=== PATIENT | female | born 1970 | race Caucasian/White ===

== ENCOUNTER 2020-12-04 15:24 | Emergency (ER) | payer OTHER, SELFPAY ==
[2020-12-04 15:39] VITALS: BP 123/74; PULSE 67; RESP 20; TEMP 37.3; O2SAT 99
[2020-12-04 15:44] VITALS: BP 123/74; PULSE 67; RESP 20; TEMP 37.3; O2SAT 99
--- NOTE | 2020-12-04 16:01 | ED.GENADULT ---
HPI - General Adult General Chief complaint: Upper Respiratory Infection Stated complaint: cough,runny nose,adolfo Time Seen by Provider: 12/04/20 16:01 Source: patient Mode of arrival: ambulatory Limitations: no limitations History of Present Illness HPI narrative: 49-year-old female patient presents to the [facility] with complaints of cold symptoms for the past week and a half as well as urinary tract infection symptoms. Patient states she has had congestion, runny nose and sneezing along with a mild nonproductive cough. Patient states she has been taking TheraFlu some [id number] cold medications. Patient also complains of pain with urination and pressure for the last 3 to 4 days. Denies fevers, body aches or chills. Denies any low back pain. Related Data Home Medications Medication Instructions Recorded Confirmed aripiprazole 5 mg tablet 5 mg PO DAILY 04/23/19 armodafinil 50 mg tablet 150 mg PO QAM 04/23/19 dextroamphetamine-amphetamine ER 20 mg PO DAILY 04/23/19 20 mg 24hr capsule,extend release sertraline 50 mg tablet 50 mg PO DAILY 04/23/19 trazodone 50 mg tablet 50 mg PO BID PRN 04/23/19 Allergies Allergy/AdvReac Type Severity Reaction Status Date / Time morphine Allergy Unknown Vomiting Verified 02/18/18 08:28 Review of Systems Review of Systems: Narrative: CONSTITUTIONAL: Denies fever, chills, or sweats. EYES: Denies visual changes, redness, or discharge. ENT: Positive rhinorrhea, congestion, sore throat, denies otalgia. CARDIOVASCULAR: Denies chest pain, palpitations, or edema. RESPIRATORY: Denies cough or dyspnea. GASTROINTESTINAL: Denies abdominal pain, nausea, vomiting, or diarrhea. GENITOURINARY: Positive dysuria, denies hematuria. SKIN: Denies rash or itching. MUSCULOSKELETAL: Denies back pain, joint pain, or myalgia. NEUROLOGIC: Denies headache, numbness, or weakness. PSYCHIATRIC: Denies anxiety or depression. [facility]LY [facility] Past Medical History Medical History (Updated 12/04/20 @ 16:20 by LUISA Cerna) Allergies Anxiety Cervical disc disorder Depression History of frequent headaches Thyroid disease Surgical History Surgical History Delivery by section H/O: hysterectomy Family History Family History Grandparent Diabetes mellitus Acute myocardial infarction Father Family history of malignant neoplasm Mother Carcinoma of colon Social History Social History Smoking packs per day: 0.5 Smoking cigarettes per day: 10.0 Years smoked: 20 Smoking pack-years: 10.00 Smoking status: Current every day smoker Tobacco type: cigarettes Alcohol intake: current Drinks per week: 1 Substance use: never Comments At the time of my signature I agree with nursing past medical history, surgical, social, and family history. There is no relevant family history pertinent to the presenting complaint. Exam Narrative: Exam Narrative: GENERAL: Well-appearing, well-nourished, and in no acute distress. HEAD: Normocephalic, atraumatic. EYES: PERRLA and EOMI. ENT: Nares with erythema and edema noted bilaterally r, no rhinorrhea or epistaxis. Mucous membranes moist. Posterior pharynx with no erythema, tonsillar Lizeth, exudates or lesions present. Bilateral TMs are clear with no erythema or foreign bodies in the canal. NECK: Supple. No lymphadenopathy CHEST: Clear to auscultation. No respiratory distress. HEART: Regular rate and rhythm. No murmur heard. Normal peripheral pulses. ABDOMEN: Soft, nontender, nondistended, normal active bowel sounds. No CVA tenderness on percussion EXTREMITIES: Normal range of motion. No edema. SKIN: Warm, dry, no rash. NEURO: No focal deficits. Alert and oriented x3. Course Vital Signs Vital signs: Vital Signs Temperature 37.3 C 12/04/20 15:39 Pulse Rate 67 06
== END 2020-12-04 16:27 | disposition home or self-care (01) ==
PROVIDERS: Emergency Provider Nurse Practitioner Family; PCP Family Medicine
DX: N30.00 Acute cystitis without hematuria (principal); J30.89 Other allergic rhinitis; F17.210 Nicotine dependence, cigarettes, uncomplicated; F41.9 Anxiety disorder, unspecified; F32.9 Major depressive disorder, single episode, unspecified
CPT/HCPCS: 81003; 87077; 87081; 87086; 87088; 87186; 87880; 99213; G0463

== ENCOUNTER 2021-05-08 17:37 | Emergency (ER) | payer OTHER, SELFPAY ==
--- NOTE | 2021-05-08 17:40 | ED.URI ---
HPI - URI/Sore Throat General Chief Complaint: Upper Respiratory Infection Stated Complaint: congestion and ear pain Time Seen by Provider: 05/08/21 18:07 Source: patient and RN notes reviewed Mode of arrival: ambulatory Limitations: no limitations History of Present Illness HPI Narrative: 50-year-old female presents concern for 1/2-week history of sinus congestion, pressure, pain, ear pressure and pain, sinus drainage, postnasal drainage. She denies sore throat, cough, shortness of breath, rash, chills, sweats. Reports low-grade fever. She denies known sick contacts. She has been vaccinated for Covid. MD elicited complaint: nasal congestion Related Data Home Medications Medication Instructions Recorded Confirmed dextroamphetamine-amphetamine ER 20 mg PO DAILY 04/23/19 05/08/21 20 mg 24hr capsule,extend release sertraline 50 mg PO DAILY 05/08/21 05/08/21 Allergies Allergy/AdvReac Type Severity Reaction Status Date / Time morphine Allergy Unknown Vomiting Verified 05/08/21 17:59 Review of Systems Review of Systems: CONSTITUTIONAL: Reports malaise. Denies chills, sweats, or fever. EYES: Denies visual changes, redness, or discharge. ENT: Reports rhinorrhea, congestion, sinus pain, otalgia. Denies sore throat. CARDIOVASCULAR: Denies chest pain, palpitations, or edema. RESPIRATORY: Denies cough. Denies dyspnea. GASTROINTESTINAL: Denies abdominal pain, nausea, vomiting, diarrhea SKIN: Denies rash or itching. MUSCULOSKELETAL: Denies myalgia. NEUROLOGIC: Reports headache. All systems reviewed & are unremarkable except as noted in HPI and below PMFSH Past Medical History Medical History (Updated 05/08/21 @ 18:11 by Earlene Mchugh NP) Allergies Anxiety Cervical disc disorder Depression History of frequent headaches Thyroid disease Surgical History Surgical History Delivery by section H/O: hysterectomy Family History Family History Grandparent Diabetes mellitus Acute myocardial infarction Father Family history of malignant neoplasm Mother Carcinoma of colon Social History Social History Smoking packs per day: 0.5 Smoking cigarettes per day: 10.0 Years smoked: 20 Smoking pack-years: 10.00 Smoking status: Current every day smoker Tobacco type: cigarettes Alcohol intake: current Drinks per week: 1 Alcohol use details: once a month Substance use: never Comments At time of signature, agree with nursing past medical, surgical, social and family history. There is no relevant family history pertinent to the presenting complaint Exam Narrative: GENERAL: Well-appearing, well-nourished, and in no acute distress. HEAD: Normocephalic EYES: PERRLA, conjunctivae clear ENT: Nares clear, turbinates edematous and erythematous, purulent discharge. Mucous membranes moist. TM pearly radford with dull light reflex bilaterally; no tragal tenderness. Oropharynx not erythematous without lesions. Tonsils not enlarged and without exudate, no drooling, no hoarseness, no trismus, uvula midline. NECK: Supple. No lymphadenopathy CHEST: Clear to auscultation, breath sounds equal. No wheezing, rhonchi, rales, or stridor. No respiratory distress, speaks in full sentences. HEART: Regular rate and rhythm. No murmur heard. SKIN: Warm, dry, no rash. NEURO: Alert and oriented x3. PSYCH: Normal mood and affect Course Course Emergency Course: Patient is aware of diagnosis, understands and agrees to treatment plan. Anticipatory guidance given. Patient agrees to follow-up as directed and is aware of reasons to seek care at the emergency department. Portions of this record may have been created with voice recognition software Vital Signs Vital signs: Reviewed. MDM - URI/Sore Throat MDM Narrative Medical decision making narrative: Jacqui
[2021-05-08 17:46] VITALS: BP 113/72; PULSE 66; RESP 14; TEMP 37.6; O2SAT 98
== END 2021-05-08 18:19 | disposition home or self-care (01) ==
PROVIDERS: Emergency Provider Nurse Practitioner; PCP Family Medicine
DX: J01.90 Acute sinusitis, unspecified (principal); F17.210 Nicotine dependence, cigarettes, uncomplicated; F41.9 Anxiety disorder, unspecified; F32.9 Major depressive disorder, single episode, unspecified; E07.9 Disorder of thyroid, unspecified
CPT/HCPCS: 99213; G0463

== ENCOUNTER 2021-07-24 10:55 | Outpatient (CLI) | payer OTHER, SELFPAY ==
[2021-07-24 19:24] LABS: Hematocrit 42.2 % (37.0-47.0); Hemoglobin 13.7 g/dL (12.0-15.0); Mean Corpuscular HGB Conc 32.5 g/dl (32-36); Mean Corpuscular Hemoglobin 32.1 pg (26-34); Mean Corpuscular Volume 98.8 fl (80-100); Mean Platelet Volume 9.9 fl (7.4-10.4); Platelet Count Result 277 k/mm3 (150-375); Red Blood Count 4.27 M/mm3 (4.2-5.4); Red Cell Distribution Width 13.2 % (11.5-14.5); White Blood Count 8.6 K/mm3 (4.5-10.0)
[2021-07-24 19:26] LABS: Add Urine Microscopic? NO; Appearance Urine Clear (Clear); Bilirubin Urine Negative (Negative); Blood Urine Negative (Negative); Color Urine Yellow (Yellow); Glucose Urine UA Negative (Negative); Ketones Urine Negative (Negative); Leukocyte Esterase Ur Negative LEU/UL (NEGATIVE); Nitrate Urine Negative (Negative); Protein Urine Negative (Negative); Specific Grav Ur 1.026 (1.001-1.035); Urobilinogen Urine Negative mg/dL (<2.0)
[2021-07-24 19:50] LABS: Erythrocyte Sedimentation Rate 4 mm/hr (0-20)
[2021-07-24 19:56] LABS: Alanine Aminotransferase 20 U/L (4-35); Albumin Level 4.3 g/dL (3.5-5.1); Alkaline Phosphatase 94 U/L (38-126); Anion Gap 5 mmol/L (8-16); Aspartate Amino Transferase 27 U/L (14-36); Bilirubin,Total 0.3 mg/dL (0.2-1.3); Blood Urea Nitrogen 18 mg/dL (7-17); Calcium 8.9 mg/dL (8.4-10.2); Carbon Dioxide 27 mmol/L (22-30); Chloride 104 mmol/L (98-107); Cholesterol 180 mg/dL (0-200); Estimated Glomerular Filt Rate > 60; Glucose 101 mg/dL (65-110); HDL Direct 78 mg/dL; LDL Cholesterol Direct 89 mg/dL; Potassium 4.6 mmol/L (3.4-5.0); Sodium 136 mmol/L (137-145); Triglycerides 66 mg/dL (<150)
[2021-07-24 19:57] LABS: Vitamin D 25 Hydroxy 28.1 ng/mL
[2021-07-24 20:11] LABS: Thyroid Stimulating Hormone Reflex 0.466 uIU/mL (0.465-4.68)
[2021-07-24 20:12] LABS: Hepatitis B Surface Antigen Negative (Negative)
[2021-07-24 20:18] LABS: HAV RESULT Negative (Negative); Hepatitis B Core IgM Result Negative (Negative)
[2021-07-24 20:29] LABS: Hepatitis C Virus Antibody Negative (Negative)
[2021-07-24 20:58] LABS: Folic Acid 5.6 ng/mL (2.76->20)
== END 2021-07-24 10:56 | disposition home or self-care (01) ==
PROVIDERS: PCP Family Medicine; Visit Provider Family Medicine
DX: Z00.00 Encounter for general adult medical examination without abnormal findings (principal); E07.9 Disorder of thyroid, unspecified; F32.9 Major depressive disorder, single episode, unspecified; M50.90 Cervical disc disorder, unspecified, unspecified cervical region; M54.16 Radiculopathy, lumbar region; F41.9 Anxiety disorder, unspecified; R53.83 Other fatigue
CPT/HCPCS: 36415; 80053; 80061; 80074; 81003; 82306; 82607; 82746; 84443; 85027; 85652

== ENCOUNTER 2022-02-01 17:19 | Emergency (ER) | payer OTHER, SELFPAY ==
--- NOTE | ~2022-02-01 | XR_ITS ---
EXAMINATION: XR foot LT min 3V DATE: 02/01/2022 17:42 INDICATION: Left foot pain and swelling TECHNIQUE: Dorsoplantar, lateral, and 2 oblique views of the left foot were obtained. COMPARISON: None. FINDINGS: Bone alignment is normal. There is no fracture. There is mild soft tissue swelling of the f oot. A plantar calcaneal enthesophyte is noted. IMPRESSION: 1. Soft tissue swelling without acute osseous abnormality. Reviewed, dictated and finalized at location B.
[2022-02-01 17:24] VITALS: BP 127/78; PULSE 68; RESP 16; TEMP 36.7; O2SAT 98
--- NOTE | 2022-02-01 17:41 | ED.EXTPRO ---
HPI - Extremity Problem General Chief complaint: Extremity Problem,Nontraumatic Stated complaint: left foot/ankle Time Seen by Provider: 02/01/22 17:35 Source: patient and RN notes reviewed Mode of arrival: ambulatory Limitations: dementia History of Present Illness HPI Narrative: 51-year-old female presents with concern for acute left foot pain. Reports pain started today at 3 PM at the bottom of the foot to the top of the foot and to the outer ankle. She reports swelling, redness, warmth. She denies any injury or trauma. She denies fever, body aches, chills, sweats. She denies rash, open skin. MD Complaint: extremity pain Related Data Home Medications Medication Instructions Recorded Confirmed dextroamphetamine-amphetamine ER 20 mg PO DAILY 04/23/19 02/01/22 20 mg 24hr capsule,extend release (Adderall XR) sertraline 50 mg tablet 50 mg PO DAILY 05/08/21 02/01/22 aripiprazole 5 mg tablet (Abilify) 5 mg PO DAILY 07/24/21 02/01/22 Allergies Allergy/AdvReac Type Severity Reaction Status Date / Time morphine Allergy Unknown Vomiting Verified 02/01/22 17:31 Review of Systems Review of Systems: CONSTITUTIONAL: Denies malaise, chills, sweats, or fever. EYES: Denies redness, or discharge. ENT: Denies rhinorrhea, congestion, swollen lips, swollen tongue CARDIOVASCULAR: Denies chest pain, palpitations, or edema. RESPIRATORY: Denies cough or dyspnea. GASTROINTESTINAL: Denies abdominal pain, nausea, vomiting SKIN: Reports redness, swelling, warmth to the left foot and ankle. Denies purulent drainage, vesicles, bullae, numbness MUSCULOSKELETAL: Reports left foot pain NEUROLOGIC: Denies headache. All systems reviewed & are unremarkable except as noted in HPI and below PMFSH Past Medical History Medical History Allergies Anxiety Cervical disc disorder Depression History of frequent headaches Thyroid disease Surgical History Surgical History Delivery by section H/O: hysterectomy Family History Family History Grandparent Diabetes mellitus Acute myocardial infarction Father Family history of malignant neoplasm Mother Carcinoma of colon Social History Social History Smoking packs per day: 0.5 Smoking cigarettes per day: 10.0 Years smoked: 20 Smoking pack-years: 10.00 Smoking status: Current every day smoker Tobacco type: cigarettes Alcohol intake: current Drinks per week: 1 Alcohol use details: once a month Substance use: never Comments At time of signature, agree with nursing past medical, surgical, social and family history. There is no relevant family history pertinent to the presenting complaint Exam Narrative: GENERAL: Well-appearing, well-nourished, and in no acute distress. HEAD: Normocephalic, atraumatic. EYES: PERRLA, conjunctivae clear ENT: Mucous membranes moist. NECK: Supple. No lymphadenopathy CHEST: Clear to auscultation. No respiratory distress. HEART: Regular rate and rhythm. SKIN: Warm, dry. Erythema, induration, tenderness, warmth with sharp margins noted left foot, ankle. No vesicles, bullae, necrosis, ecchymosis, crepitus noted. NEURO: Alert and oriented x3. PSYCH: Normal mood and affect Course Course Emergency Course: Patient is aware of diagnosis, understands and agrees to treatment plan. Anticipatory guidance given. Patient agrees to follow-up as directed and is aware of reasons to seek care at the emergency department. Portions of this record may have been created with voice recognition software Level of Care: Express Care Visit Vital Signs Vital signs: Vital Signs Temperature 98.1 F 02/01/22 17:24 Pulse Rate 68 02/01/22 17:24 Respiratory Rate 16 02/01/22 17:24 Blood Pressure 127/78 02/01/22 17:24 Pu
== END 2022-02-01 18:00 | disposition home or self-care (01) ==
PROVIDERS: Emergency Provider Nurse Practitioner; PCP Family Medicine
DX: M10.9 Gout, unspecified (principal); F17.210 Nicotine dependence, cigarettes, uncomplicated; F41.9 Anxiety disorder, unspecified; F32.A Depression, unspecified
CPT/HCPCS: 73630; 99213; G0463

== ENCOUNTER 2022-02-26 12:04 | Outpatient (CLI) | payer OTHER, SELFPAY ==
[2022-02-26 20:58] LABS: Uric Acid 2.9 mg/dL (2.5-7.5)
== END 2022-02-26 12:05 | disposition home or self-care (01) ==
LOC: ANHBWCLAB 12:05
PROVIDERS: PCP Family Medicine; Visit Provider Family Medicine
DX: M25.40 Effusion, unspecified joint (principal)
CPT/HCPCS: 36415; 84550

== ENCOUNTER 2022-05-23 15:56 | Emergency (ER) | payer OTHER, SELFPAY ==
[2022-05-23 16:10] VITALS: BP 108/70; PULSE 90; RESP 16; TEMP 36.4; O2SAT 98
--- NOTE | 2022-05-23 17:26 | ED.URI ---
HPI - URI/Sore Throat General Chief Complaint: Upper Respiratory Infection Stated Complaint: Cough/Sore Throat Time Seen by Provider: 05/23/22 17:27 Source: patient and RN notes reviewed Mode of arrival: ambulatory Limitations: no limitations History of Present Illness HPI Narrative: 51-year-old female presented for complaint of being sick. She endorses an occasional cough, sinus congestion and drainage with a sore throat, intermittent diarrhea and body aches. She denies shortness of breath, wheezing, fevers or chills. She denies sick contacts. She is taking Tylenol for symptoms. MD elicited complaint: cough Related Data Home Medications Medication Instructions Recorded Confirmed dextroamphetamine-amphetamine ER 20 mg PO DAILY 04/23/19 05/23/22 20 mg 24hr capsule,extend release (Adderall XR) sertraline 50 mg tablet 50 mg PO DAILY 05/08/21 05/23/22 aripiprazole 5 mg tablet (Abilify) 5 mg PO DAILY 07/24/21 05/23/22 Allergies Allergy/AdvReac Type Severity Reaction Status Date / Time morphine Allergy Unknown Vomiting Verified 05/23/22 16:42 Review of Systems Review of Systems: ROS per HPI [facility] Past Medical History Medical History Allergies Anxiety Cervical disc disorder Depression History of frequent headaches Thyroid disease Surgical History Surgical History Delivery by section H/O: hysterectomy Family History Family History Grandparent Diabetes mellitus Acute myocardial infarction Father Family history of malignant neoplasm Mother Carcinoma of colon Social History Social History Smoking packs per day: 0.5 Smoking cigarettes per day: 10.0 Years smoked: 20 Smoking pack-years: 10.00 Smoking status: Current every day smoker Tobacco type: cigarettes Alcohol intake: current Drinks per week: 1 Alcohol use details: once a month Substance use: never Exam Narrative: GENERAL: well-appearing, nontoxic HEAD: Normocephalic EYES: PERRLA, conjunctivae clear ENT: Mucous membranes moist. TM pearly radford with dull light reflex bilaterally; no tragal tenderness. Oropharynx erythematous without lesions or exudate, no drooling, no hoarseness, no trismus, uvula midline. NECK: Supple. No lymphadenopathy CHEST: Clear to auscultation, breath sounds equal. HEART: Regular rate and rhythm. No murmur heard. SKIN: Warm, dry, no rash. NEURO: Alert and oriented x3. PSYCH: Normal mood and affect Course Course Emergency Course: Patient is aware of diagnosis, understands and agrees to treatment plan. Anticipatory guidance given. Patient agrees to follow-up as directed and is aware of reasons to seek care at the emergency department. Portions of this record may have been created with voice recognition software Level of Care: Express Care Visit Vital Signs Vital signs: Vital Signs Temperature 97.6 F 05/23/22 16:10 Pulse Rate 90 05/23/22 16:10 Respiratory Rate 16 05/23/22 16:10 Blood Pressure 108/70 05/23/22 16:10 Pulse Oximetry 98 05/23/22 16:10 Temperature 97.6 F 05/23/22 16:10 Pulse Rate 90 05/23/22 16:10 Respiratory Rate 16 05/23/22 16:10 Blood Pressure 108/70 05/23/22 16:10 Pulse Oximetry 98 05/23/22 16:10 reviewed MDM - URI/Sore Throat MDM Narrative Medical decision making narrative: COVID result reviewed with pt. Advised supportive measures and signs/symptoms to go to the ER. Pt is appropriate for outpt treatment and f/u. Differential Diagnosis Differential diagnosis: Likely upper respiratory infection, sinusitis and viral infection Discharge Plan Discharge Clinical Impression: Upper respiratory infection Patient Disposition: Home, Self-Care Condition: Stable Instructions: Ant
== END 2022-05-23 17:35 | disposition home or self-care (01) ==
PROVIDERS: Emergency Provider Nurse Practitioner Family; PCP Family Medicine
DX: J06.9 Acute upper respiratory infection, unspecified (principal); Z20.822 Contact with and (suspected) exposure to COVID-19; F17.210 Nicotine dependence, cigarettes, uncomplicated; F41.9 Anxiety disorder, unspecified; F32.A Depression, unspecified
CPT/HCPCS: 87426; 99213; C9803; G0463

== ENCOUNTER 2022-08-31 09:40 | Emergency (ER) | payer OTHER, SELFPAY ==
[2022-08-31 09:49] VITALS: BP 122/81; PULSE 67; RESP 20; TEMP 36.8; O2SAT 100
--- NOTE | 2022-08-31 11:10 | ED.URI ---
HPI - URI/Sore Throat General Chief Complaint: Upper Respiratory Infection Stated Complaint: Sore Throat/Headache Time Seen by Provider: 08/31/22 11:10 Source: patient, RN notes reviewed and old records reviewed Mode of arrival: ambulatory Limitations: no limitations History of Present Illness HPI Narrative: 51-year-old female who presents to [facility] Care with 4 day history of cough congestion body aches sore throat headache has also had some vomiting with nausea and diarrhea. Patient reports she has been taking ibuprofen and also has taken Jazzy-Kingsley cold and flu. Patient states she has had no fever but she has felt chilled and has had sweats. Patient denies any known ill contacts. MD elicited complaint: cough, sore throat, rhinorrhea and nasal congestion Onset (ago): day(s) (4) Pain scale (0-10): 6 Able to tolerate fluids by mouth: Yes Treatments prior to arrival: ibuprofen and other (aka seltzer cold and flu) Related Data Home Medications Medication Instructions Recorded Confirmed dextroamphetamine-amphetamine ER 20 mg PO DAILY 04/23/19 08/31/22 20 mg 24hr capsule,extend release (Adderall XR) sertraline 50 mg tablet 50 mg PO DAILY 05/08/21 08/31/22 aripiprazole 5 mg tablet (Abilify) 5 mg PO DAILY 07/24/21 08/31/22 Allergies Allergy/AdvReac Type Severity Reaction Status Date / Time morphine Allergy Unknown Vomiting Verified 05/23/22 16:42 Review of Systems Review of Systems: CONSTITUTIONAL: Reports malaise, chills, sweats, or fever. EYES: Denies visual changes, redness, or discharge. ENT: Reports rhinorrhea, congestion, sinus pain,no otalgia scratchy sore throat. CARDIOVASCULAR: Denies chest pain, palpitations, or edema. RESPIRATORY: Reports cough.? Denies dyspnea. GASTROINTESTINAL: Denies abdominal pain,ositive for nausea, vomiting, diarrhea SKIN: Denies rash or itching. MUSCULOSKELETAL: reports myalgia. NEUROLOGIC: Reports headache. All systems reviewed & are unremarkable except as noted in HPI and below PMFSH Past Medical History Medical History Allergies Anxiety Cervical disc disorder Depression History of frequent headaches Thyroid disease Surgical History Surgical History Delivery by section H/O: hysterectomy Family History Family History Grandparent Diabetes mellitus Acute myocardial infarction Father Family history of malignant neoplasm Mother Carcinoma of colon Social History Social History Smoking packs per day: 0.5 Smoking cigarettes per day: 10.0 Years smoked: 20 Smoking pack-years: 10.00 Smoking status: Current every day smoker Tobacco type: cigarettes Alcohol intake: current Drinks per week: 1 Alcohol use details: once a month Substance use: never Comments At time of signature, agree with nursing past medical, surgical, social and family history. There is no relevant family history pertinent to the presenting complaint Exam Narrative: GENERAL: Well-appearing, well-nourished, and in no acute distress. HEAD: Normocephalic EYES: PERRLA, conjunctivae clear ENT: Nares clear, turbinates edematous and erythematous, clear discharge. Mucous membranes moist. TM pearly radford with dull light reflex bilaterally; no tragal tenderness. Oropharynx erythematous without lesions. Tonsils mildly enlarged and without exudate, no drooling, no hoarseness, no trismus, uvula midline.post nasal discharge NECK: Supple. No lymphadenopathy CHEST: Clear to auscultation, breath sounds equal. No wheezing, rhonchi, rales, or stridor. No respiratory distress, speaks in full sentences.cough SAO2 100% on room air HEART: Regular rate and rhythm. No murmur heard. SKIN: Warm, dry, no rash. NEURO: Alert and oriented x3. PSYCH: N
== END 2022-08-31 11:31 | disposition home or self-care (01) ==
PROVIDERS: Emergency Provider Registered Nurse; PCP Family Medicine
DX: J06.9 Acute upper respiratory infection, unspecified (principal); R11.2 Nausea with vomiting, unspecified; R19.7 Diarrhea, unspecified; F41.9 Anxiety disorder, unspecified; F32.A Depression, unspecified; F17.210 Nicotine dependence, cigarettes, uncomplicated; Z20.822 Contact with and (suspected) exposure to COVID-19
CPT/HCPCS: 87081; 87426; 87804; 87880; 99213; C9803; G0463

== ENCOUNTER 2022-10-15 12:13 | Outpatient (CLI) | payer OTHER, SELFPAY ==
[2022-10-15 18:47] LABS: Basophils Percent Auto 0.4 % (0.2-1.2); Eosinophils Absolute Auto 0.1 K/mm3 (0-0.3); Eosinophils Percent Auto 1.4 % (0-4.4); Hematocrit 41.6 % (37.0-47.0); Hemoglobin 13.6 g/dL (12.0-15.0); Immature Granulocyte Absolute 0.03 K/mm3 (0.00-0.031); Immature Granulocyte Percent A 0.3 % (0-0.5); Lymphocytes Absolute Auto 3.32 K/mm3 (0.9-3.2); Lymphocytes Percent Auto 36.5 % (18.3-44.2); Mean Corpuscular HGB Conc 32.7 g/dl (32-36); Mean Corpuscular Hemoglobin 31.5 pg (26-34); Mean Corpuscular Volume 96.3 fl (80-100); Mean Platelet Volume 10.5 fl (7.4-10.4); Monocytes Absolute Auto 0.9 K/mm3 (0.1-0.6); Monocytes Percent Auto 10.3 % (2.6-8.5); Neutrophils Absolute Auto 4.6 K/mm3 (1.3-6.7); Neutrophils Percent Auto 51.1 % (45.5-73.1); Platelet Count Result 299 k/mm3 (150-375); Red Blood Count 4.32 M/mm3 (4.2-5.4); Red Cell Distribution Width 13.3 % (11.5-14.5); White Blood Count 9.1 K/mm3 (4.5-10.0)
[2022-10-15 18:50] LABS: Alanine Aminotransferase 23 U/L (6-35); Albumin Level 4.2 g/dL (3.5-5.1); Alkaline Phosphatase 84 U/L (38-126); Anion Gap 7 mmol/L (8-16); Aspartate Amino Transferase 68 U/L (14-36); Bilirubin,Total 0.5 mg/dL (0.2-1.3); Blood Urea Nitrogen 12 mg/dL (7-17); Calcium 8.8 mg/dL (8.4-10.2); Carbon Dioxide 25 mmol/L (22-30); Chloride 104 mmol/L (98-107); Cholesterol 180 mg/dL (0-200); Estimated Glomerular Filt Rate > 60; Glucose 95 mg/dL (65-110); HDL Direct 60 mg/dL; Potassium 3.7 mmol/L (3.4-5.0); Sodium 136 mmol/L (137-145); Triglycerides 60 mg/dL (<150)
[2022-10-15 18:57] LABS: Appearance Urine Slightly Cloudy (Clear); Bilirubin Urine Negative (Negative); Blood Urine Negative (Negative); Color Urine Yellow (Yellow); Glucose Urine UA Negative (Negative); Ketones Urine 2+ mg/dL (Negative); Leukocyte Esterase Ur Negative LEU/UL (NEGATIVE); Nitrate Urine Negative (Negative); Protein Urine Negative (Negative); Specific Grav Ur >= 1.030 (1.001-1.035); Urobilinogen Urine 0.2 mg/dL (<2.0); pH Urine 5.5 (5.0-9.0)
[2022-10-15 18:58] LABS: Add Urine Microscopic? NO
[2022-10-15 19:01] LABS: LDL Cholesterol Direct 101 mg/dL
[2022-10-15 19:21] LABS: Thyroid Stimulating Hormone 0.267 uIU/mL (0.465-4.680)
[2022-10-15 19:57] LABS: Bacteria Urine 4+ /hpf; Need Manual Microscopic Reviewed; Squamous Epithelial Cell Urine Many /hpf (Few)
== END 2022-10-15 12:14 | disposition home or self-care (01) ==
LOC: ANHBWCLAB 12:14
PROVIDERS: PCP Family Medicine; Visit Provider Nurse Practitioner
DX: Z00.00 Encounter for general adult medical examination without abnormal findings (principal); R53.83 Other fatigue; E07.9 Disorder of thyroid, unspecified; N39.0 Urinary tract infection, site not specified
CPT/HCPCS: 36415; 80053; 80061; 81003; 84443; 85025

== ENCOUNTER 2023-05-13 09:59 | Emergency (ER) | payer OTHER, SELFPAY ==
[2023-05-13 10:15] VITALS: BP 121/82; PULSE 64; RESP 20; TEMP 36.3; O2SAT 98
[2023-05-13 10:22] VITALS: BP 121/82; PULSE 64; RESP 20; TEMP 36.3; O2SAT 98
--- NOTE | 2023-05-13 10:31 | ED.URI ---
HPI - URI/Sore Throat General Chief Complaint: Upper Respiratory Infection Stated Complaint: throat/cough/sob/tight chest Time Seen by Provider: 05/13/23 10:36 Source: patient, RN notes reviewed and old records reviewed Mode of arrival: ambulatory Limitations: no limitations History of Present Illness HPI Narrative: 52-year-old female presents to [facility] with complaints of cough, congestion, myalgias, and fatigue that started on 05/08/23. patient taking [place] cold Plus. Patient states daughter has COVID. MD elicited complaint: cough and nasal congestion Severity: moderate Related Data Home Medications Medication Instructions Recorded Confirmed dextroamphetamine-amphetamine ER 20 mg PO DAILY 04/23/19 05/13/23 20 mg 24hr capsule,extend release (Adderall XR) sertraline 50 mg tablet 50 mg PO DAILY 05/08/21 05/13/23 aripiprazole 5 mg tablet (Abilify) 5 mg PO DAILY 07/24/21 05/13/23 Allergies Allergy/AdvReac Type Severity Reaction Status Date / Time morphine Allergy Unknown Vomiting Verified 05/13/23 10:19 Review of Systems Constitutional: Constitutional: Reports as per HPI, Reports body ache(s), Reports chills, Reports fatigue and Reports fever(s) Eyes: Eyes: Reports no additional eye complaints ENT: Reports nasal congestion Cardiovascular: Cardiovascular: Reports no additional cardiovascular complaints Respiratory: Respiratory: Reports as per HPI, Reports chest congestion and Reports cough Neurologic: Reports system reviewed and no additional complaints, except as documented PMFSH Past Medical History Medical History Allergies Anxiety Cervical disc disorder Depression History of frequent headaches Thyroid disease Surgical History Surgical History Delivery by section H/O: hysterectomy Family History Family History Grandparent Diabetes mellitus Acute myocardial infarction Father Family history of malignant neoplasm Mother Carcinoma of colon Social History Social History Smoking packs per day: 0.5 Smoking cigarettes per day: 10.0 Years smoked: 20 Smoking pack-years: 10.00 Smoking status: Current every day smoker Tobacco type: cigarettes Alcohol intake: current Drinks per week: 1 Alcohol use details: once a month Substance use: never Lack of Transportation: No Lack of Food: Never True Current Housing: I Have Housing Concerned About Future Housing: No Difficulty Paying Gas/Electric Bills: No Difficulty Paying for Meds: No Currently Unemployed: No Education: Associate Degree Difficulty w/ Childcare or Family Care: No Living arrangements: with family Comments At the time of my signature, I reviewed and agree with the nursing past medical, surgical, social, and family history. There is no relevant family history pertinent to the patient complaint. Exam Const: General: cooperative, healthy appearing, no acute distress and well nourished Nutritional Appearance: well nourished Orientation/consciousness: patient oriented x3 Limitations: no limitations HENMT: Head: normal to inspection and normocephalic Ears: external ears normal, TM's normal bilaterally, mastoids normal and Abnormal EAC present Face/Nose/Sinus: normal facial exam Face and sinus: normal facial exam Mouth: Yes Normal oral and palatal mucosa present, Yes oropharynx normal and Yes moist mucous membranes Throat: posterior oropharynx normal, tonsils normal, uvula midline and no uvular edema Eyes: General: appearance normal, both eyes and all related structures Sclera: sclerae normal Pupils: Equal, round and reactive pupils present Resp: Effort & Inspection: normal respiratory effort, able to speak in complete sentences, no audible wheezes, no
== END 2023-05-13 10:59 | disposition home or self-care (01) ==
PROVIDERS: Emergency Provider Registered Nurse; PCP Family Medicine
DX: J06.9 Acute upper respiratory infection, unspecified (principal); Z20.822 Contact with and (suspected) exposure to COVID-19; F17.210 Nicotine dependence, cigarettes, uncomplicated; F41.9 Anxiety disorder, unspecified; F32.A Depression, unspecified
CPT/HCPCS: 87426; 99213; C9803; G0463

== ENCOUNTER 2023-05-22 15:40 | Outpatient (CLI) | payer OTHER, SELFPAY ==
--- NOTE | ~2023-05-22 | XR_ITS ---
EXAMINATION: XR chest 2V DATE: 05/22/2023 15:49 INDICATION: Cough, unspecified. TECHNIQUE: Frontal and lateral views of the chest were obtained. COMPARISON: Chest 2 views 07/03/2018 FINDINGS: There is mild atelectasis at left lung base. No pleural effusion or pneumothorax. The heart size is normal. There are surgical changes in cervical spine. IMPRESSION: 1. Mild atelectasis at left lung base. Reviewed, dictated and finalized at location A. R INSTRUCTOR
== END 2023-05-22 15:41 | disposition home or self-care (01) ==
LOC: ANHBWCIMG 15:41
PROVIDERS: PCP Nurse Practitioner Adult Health; Visit Provider Nurse Practitioner Adult Health
DX: R05.9 Cough, unspecified (principal); J98.11 Atelectasis
CPT/HCPCS: 71046

== ENCOUNTER 2023-05-29 11:25 | Emergency (ER) | payer OTHER, SELFPAY ==
[2023-05-29] VITALS (9 sets, daily range): BP systolic 112–139; BP diastolic 76–89; PULSE 55–69; RESP 16–20; O2SAT 97–100
--- NOTE | ~2023-05-29 | XR_ITS ---
Clinical Indication: Disc PA and lateral views of the chest: Comparison: 05/22/2023 Findings: The lungs are clear, without evidence of focal consolidation or pleural effusion. Cardiome diastinal silhouette is within normal limits. Bones and soft tissues are unremarkable. Impression: Normal chest. Reviewed, dictated and finalized at location . TRAFFIC COORDINATOR Impression: Normal chest.
--- NOTE | 2023-05-29 11:26 | ECG_ITS ---
Measurements Intervals [place] Rate: 66 P: 28 DC: 177 QRS: 10 QRSD: 78 T: 41 QT: 404 QTc: 425 Interpretive Statements SINUS RHYTHM LOW QRS VOLTAGE IN PRECORDIAL LEADS [QRS DEFLECTION < 1.0 mV IN CHEST LEADS] BORDERLINE ECG NO PREVIOUS ECG AVAILABLE FOR COMPARISON Electronically Signed On 05-29-2023 16:02:56 PATIENT COORDINATOR by Josiah Hines M.D.
[2023-05-29 11:39] LABS: Basophils Percent Auto 0.3 % (0.2-1.2); Eosinophils Absolute Auto 0.1 K/mm3 (0-0.3); Eosinophils Percent Auto 0.9 % (0-4.4); Hematocrit 43.1 % (37.0-47.0); Hemoglobin 14.2 g/dL (12.0-15.0); Immature Granulocyte Absolute 0.06 K/mm3 (0.00-0.031); Immature Granulocyte Percent A 0.5 % (0-0.5); Lymphocytes Absolute Auto 3.33 K/mm3 (0.9-3.2); Lymphocytes Percent Auto 28.5 % (18.3-44.2); Mean Corpuscular HGB Conc 32.9 g/dl (32-36); Mean Corpuscular Hemoglobin 31.6 pg (26-34); Mean Corpuscular Volume 95.8 fl (80-100); Mean Platelet Volume 9.3 fl (7.4-10.4); Monocytes Absolute Auto 1.3 K/mm3 (0.1-0.6); Monocytes Percent Auto 11.2 % (2.6-8.5); Neutrophils Absolute Auto 6.9 K/mm3 (1.3-6.7); Neutrophils Percent Auto 58.6 % (45.5-73.1); Platelet Count Result 343 k/mm3 (150-375); Red Cell Distribution Width 13.3 % (11.5-14.5); White Blood Count 11.7 K/mm3 (4.5-10.0)
--- NOTE | 2023-05-29 11:48 | ED.CHESTPAIN ---
HPI - Chest Pain General Chief Complaint: Chest Pain Stated Complaint: cp/sob Time Seen by Provider: 05/29/23 11:46 Source: patient and family (spouse) Limitations: no limitations History of Present Illness HPI narrative: 52 yo female who presents with chest pain and some associated shortness of breath. She has been having symptoms for 2-3 weeks. She was recently diagnosed with bronchitis and completed steroid course and is finishing Augmentin regimen (6 tablets remain). She has a heavy sensation in her chest that radiates to her neck. Cough is intermittent, non productive. She was having fevers 1 week ago but not since starting medications. No hemoptysis, recent travel, exogenous hormones. not sick. No cardiac history; does not see a alarm operator. Related Data Home Medications Medication Instructions Recorded Confirmed dextroamphetamine-amphetamine ER 20 mg PO DAILY 04/23/19 05/22/23 20 mg 24hr capsule,extend release (Adderall XR) sertraline 50 mg tablet 50 mg PO DAILY 05/08/21 05/22/23 aripiprazole 5 mg tablet (Abilify) 5 mg PO DAILY 07/24/21 05/22/23 Allergies Allergy/AdvReac Type Severity Reaction Status Date / Time morphine AdvReac Unknown Vomiting Verified 05/29/23 11:37 [facility] Past Medical History Medical History (Updated 05/30/23 @ 00:00 by Lobo Gracia) Allergies Anxiety Cervical disc disorder Depression History of frequent headaches Thyroid disease Surgical History Surgical History Delivery by section H/O: hysterectomy partial Family History Family History Grandparent Diabetes mellitus Acute myocardial infarction Father Family history of malignant neoplasm Mother Carcinoma of colon Social History Social History (Updated 05/31/23 @ 05:41 by Isela Esquivel MD) Social History: Smoking packs per day: 0.5 Smoking cigarettes per day: 10.0 Years smoked: 20 Smoking pack-years: 10.00 Smoking status: Current every day smoker Tobacco type: cigarettes Alcohol intake: current Drinks per week: 1 Alcohol use details: once a month Substance use: never Lack of Transportation: No Lack of Food: Never True Current Housing: I Have Housing Concerned About Future Housing: No Difficulty Paying Gas/Electric Bills: No Difficulty Paying for Meds: No Currently Unemployed: No Education: Associate Degree Difficulty w/ Childcare or Family Care: No Living arrangements: with family Occupation/Education: occupation Additional occupation/education comments: works from home Exam Narrative: GENERAL: Well-appearing, well-nourished, and in no acute distress. HEAD: Normocephalic, atraumatic. EYES: Non injected, non icteric ENT: Nares clear, no rhinorrhea or epistaxis. Tacky mucous membranes NECK: Supple. No meningismus CHEST: Clear to auscultation. No respiratory distress. Speaks in full sentences. HEART: Regular rate and rhythm. . ABDOMEN: Soft, nondistended. EXTREMITIES: Normal range of motion. No edema. SKIN: Warm, dry, no rash. NEURO: No focal deficits. Alert and oriented x3. PSYCH: Normal mood and affect. Course Vital Signs Vital signs: Vital Signs Pulse Rate 68 05/29/23 11:30 Respiratory Rate 20 05/29/23 11:30 Blood Pressure 139/83 05/29/23 11:30 Pulse Oximetry 99 05/29/23 11:30 Oxygen Delivery Room Air 05/29/23 11:30 Pulse Rate 60 05/29/23 15:50 Respiratory Rate 20 05/29/23 15:50 Blood Pressure 127/86 05/29/23 15:50 Pulse Oximetry 97 05/29/23 15:50 Oxygen Delivery Room Air 05/29/23 11:46 MDM - Chest Pain MDM Narrative Medical decision making narrative: 52 yo female who presents with chest pain and shortness of breath. Recently diagnosed with bronchitis and completed course of steroids, finishing course of antibiotics. In the ED she is afebril
[2023-05-29 11:49] LABS: Lipase 44 U/L (23-300)
[2023-05-29 11:51] LABS: INR 0.9; Prothrombin Time 12.3 Seconds (11.1-14.7)
[2023-05-29 11:52] LABS: Partial Thromboplastin Time 23.7 SECONDS (22.3-36.8)
[2023-05-29 12:02] LABS: Troponin I < 0.012 ng/mL (0.000-0.034)
[2023-05-29 12:17] LABS: Alanine Aminotransferase 17 U/L (6-35); Albumin Level 4.3 g/dL (3.5-5.1); Alkaline Phosphatase 86 U/L (38-126); Anion Gap 4 mmol/L (8-16); Aspartate Amino Transferase 20 U/L (14-36); Bilirubin,Total 0.4 mg/dL (0.2-1.3); Blood Urea Nitrogen 13 mg/dL (7-17); Calcium 9.3 mg/dL (8.4-10.2); Carbon Dioxide 26 mmol/L (22-30); Chloride 106 mmol/L (98-107); Estimated CRCL calculation 78 ml/min; Estimated Glomerular Filt Rate > 60; Glucose 114 mg/dL (65-110); Potassium 3.9 mmol/L (3.4-5.0); Sodium 136 mmol/L (137-145)
[2023-05-29 12:35] LABS: D Dimer 0.27 ug/mL (<0.48)
[2023-05-29 13:22] LABS: Influenza A QL RT-PCR Negative (Negative); Influenza B QL RT-PCR Negative (Negative); SARS-CoV-2 RNA PCR Negative (Negative)
--- NOTE | 2023-05-29 14:49 | ECG_ITS ---
Measurements Intervals [place] Rate: 52 P: 30 CA: 178 QRS: 7 QRSD: 78 T: 41 QT: 437 QTc: 408 Interpretive Statements SINUS BRADYCARDIA LOW QRS VOLTAGE IN PRECORDIAL LEADS [QRS DEFLECTION < 1.0 mV IN CHEST LEADS] BORDERLINE ECG COMPARED TO ECG 05/29/2023 11:38:22 HEART RATE HAS DECREASED Electronically Signed On 05-29-2023 16:06:54 VEGETABLE SCULLION by Josiah Hines M.D.
[2023-05-29 15:20] LABS: Troponin I < 0.012 ng/mL (0.000-0.034)
== END 2023-05-29 15:52 | disposition home or self-care (01) ==
PROVIDERS: Emergency Provider Student in an Organized Health Care Education/Training Program; PCP Nurse Practitioner Adult Health
DX: R07.9 Chest pain, unspecified (principal); Z20.822 Contact with and (suspected) exposure to COVID-19; E07.9 Disorder of thyroid, unspecified; F41.9 Anxiety disorder, unspecified; F32.A Depression, unspecified; F17.210 Nicotine dependence, cigarettes, uncomplicated; Z90.711 Acquired absence of uterus with remaining cervical stump; R00.1 Bradycardia, unspecified
CPT/HCPCS: 36415; 71046; 80053; 83690; 84484; 85025; 85380; 85610; 85730; 87636; 93005; 99284

== ENCOUNTER 2023-09-24 07:24 | Outpatient (CLI) | payer OTHER, SELFPAY ==
--- NOTE | 2023-09-24 07:47 | ECHO_ITS ---
Patient Info Name: Teena Lozano [place] Age: 52 years : 1970 Gender: Female Ht: 66 in Wt: 175 lbs BSA: 1.94 m2 HR: 54 bpm BP: 140 / 85 mmHg Technical Quality: Fair Exam Date: 09/24/2023 7:52 AM Exam Location: Echo Lab Patient Status: Outpatient Admit Date: 09/24/2023 Staff Ordering Physician: Zaid Guillen DO Herb Grower: Dottie Olsen RDCS Attending Provider: Zaid Guillen DO Referring Physician: Wilmer JIN; Exam Type: CA echo dop color flow Study Info Indications R55 - Syncope and collapse Complete two-dimensional, color flow and Doppler transthoracic echocardiogram is performed. Summary 1. Complete two-dimensional, color flow and Doppler transthoracic echocardiogram is performed. 2. Left ventricular chamber dimension is normal. 3. Left ventricular systolic function is normal, estimated at 65-70%. 4. The left ventricular diastolic function is abnormal. 5. E/e' 10 is mildly elevated. 6. There is trace tricuspid valve regurgitation. 7. No pulmonary hypertension, estimated pulmonary arterial systolic pressure is 27 mmHg. 8. There is trace pulmonic regurgitation. Left Ventricle E/e' 10 is mildly elevated. Left ventricular chamber dimension is normal. Left ventricular systolic function is normal, estimated at 65-70%. The left ventricular diastolic function is abnormal. Right Ventricle Right ventricular systolic function is normal and with normal TAPSE 3.0 cm. Right ventricular chamber dimension is normal. Left Atria Left atrial chamber dimension is normal. Right Atria Right atrial chamber dimension is normal. Aortic Valve The aortic valve is trileaflet. There is no aortic valve stenosis. There is no aortic valve regurgitation. Pulmonic Valve There is trace pulmonic regurgitation. Mitral Valve There is no mitral valve stenosis. There is no mitral valve regurgitation. Tricuspid Valve There is trace tricuspid valve regurgitation. No pulmonary hypertension, estimated pulmonary arterial systolic pressure is 27 mmHg. Pericardium/Pleural There is no pericardial effusion. Inferior Vena Cava Normal inferior vena cava with >50% collapse upon inspiration consistent with normal right atrial pressure, 5 mmHg. Aorta The aortic root size at the sinus of Valsalva is normal. Left Ventricular Outflow Tract Name Value Normal LVOT 2D LVOT Diameter 2.14 cm LVOT Doppler LVOT Peak Gradient 5 mmHg LVOT Mean Gradient 2 mmHg LVOT VTI 25.66 cm LVOT VTI/AV VTI Ratio 0.94 LVOT Stroke Volume 92.64 ml LVOT CO 4.98 l/min LVOT CI 2.56 L/min/m2 Pulmonic Valve Name Value Normal RVOT Doppler RVOT Peak Gradient 1 mmHg
--- NOTE | 2023-09-24 07:48 | EST_ITS ---
Patient Info Name: Teena Lozano [place] Age: 52 years : 1970 Gender: Female Ht: 66 in Wt: 175 lbs BSA: 1.94 m2 HR: 57 bpm BP: 133 / 77 mmHg Heart Rhythm: Sinus Rhythm Exam Date: 09/24/2023 9:07 AM Exam Location: Echo Lab Patient Status: Outpatient Admit Date: 09/24/2023 Staff Ordering Physician: Zaid Guillen DO Attending Provider: Zaid Guillen DO Exercise Technologist: Nazia Murdock CT Exercise Physician: Zaid Guillen DO Exam Type: CA stress test treadmill Study Info Indications R07.89 - Other chest pain A treadmill exercise stress test was performed. Summary 1. 1. Negative Prakash exercise stress test for ischemic ST changes by ECG criteria. 2. 2. Reduced functional capacity, achieving 8 METs of workload. 3. 3. Appropriate HR response to exercise. 4. 4. Appropriate HR recovery at 1 minute post exercise. 5. 5. No imaging with stress testing. 6. 6. Patient informed of the above results. Protocol: Prakash Stress ECG Details Stage: REST Duration (min): 1 min : 3 sec Speed (mph): 0.0 Grade (%): 0 HR (bpm): 56 SBP (mmHg): 133 DBP (mmHg): 77 METS: --- Stage: REST Duration (min): 3 min : 45 sec Speed (mph): 0.0 Grade (%): 0 HR (bpm): 61 SBP (mmHg): 133 DBP (mmHg): 77 METS: --- Stage: STAGE 1 Duration (min): 1 min : 0 sec Speed (mph): 1.7 Grade (%): 10 HR (bpm): 94 SBP (mmHg): 133 DBP (mmHg): 77 METS: --- Stage: STAGE 1 Duration (min): 2 min : 0 sec Speed (mph): 1.7 Grade (%): 10 HR (bpm): 108 SBP (mmHg): 133 DBP (mmHg): 77 METS: --- Stage: STAGE 1 Duration (min): 3 min : 0 sec Speed (mph): 1.7 Grade (%): 10 HR (bpm): 112 SBP (mmHg): 139 DBP (mmHg): 77 METS: --- Stage: STAGE 2 Duration (min): 1 min : 0 sec Speed (mph): 2.5 Grade (%): 12 HR (bpm): 125 SBP (mmHg): 139 DBP (mmHg): 77 METS: --- Stage: STAGE 2 Duration (min): 2 min : 0 sec Speed (mph): 2.5 Grade (%): 12 HR (bpm): 137 SBP (mmHg): 147 DBP (mmHg): 78 METS: --- Stage: STAGE 2 Duration (min): 3 min : 0 sec Speed (mph): 2.5 Grade (%): 12 HR (bpm): 142 SBP (mmHg): 147 DBP (mmHg): 78 METS: --- Stage: STAGE 3 Duration (min): 0 min : 32 sec Speed (mph): 3.4 Grade (%): 14 HR (bpm): 147 SBP (mmHg): 147 DBP (mmHg): 78 METS: --- Stage: RECOVERY Duration (min): 0 min : 27 sec Speed (mph): 0.0 Grade (%): 0 HR (bpm): 145 SBP (mmHg): 166 DBP (mmHg): 94 METS: --- Stage: RECOVERY Duration (min): 1 min : 27 sec Speed (mph): 0.0 Grade (%): 0 HR (bpm): 92 SBP (mmHg): 166 DBP (mmHg): 94 METS: --- Stage: RECOVERY Duration (min): 2 min : 27 sec Speed (mph): 0.0 Grade (%): 0 HR (bpm): 78 SBP (mmHg): 166 DBP (mmHg): 94 METS: --- Stage: RECOVERY Duration (min): 3 min : 17 sec Speed (mph): 0.0 Grade (%): 0 HR (bpm): 84 SBP (mmHg): 138 DBP (mmHg): 87 METS: -
== END 2023-09-24 07:25 | disposition home or self-care (01) ==
LOC: ANHCARD 07:26
PROVIDERS: PCP Nurse Practitioner Adult Health; Visit Provider Internal Medicine Cardiovascular Disease
DX: R07.89 Other chest pain (principal); R55 Syncope and collapse
CPT/HCPCS: 93017; 93306; C8929

== ENCOUNTER 2024-01-22 12:32 | Outpatient (CLI) | payer OTHER, SELFPAY | END 2024-01-22 12:33 | disposition home or self-care (01) | LOC: ANHBWCLAB 12:33 | PROVIDERS: PCP Nurse Practitioner Adult Health; Visit Provider Nurse Practitioner Adult Health | DX: K62.89 Other specified diseases of anus and rectum (principal) | CPT/HCPCS: 87045; 87427; 87449 ==

== ENCOUNTER 2024-02-01 13:13 | Emergency (ER) | payer OTHER, SELFPAY ==
[2024-02-01 13:30] VITALS: BP 113/79; PULSE 64; RESP 18; TEMP 37.3; O2SAT 98
--- NOTE | 2024-02-01 13:53 | ED.URI ---
HPI - URI/Sore Throat General Chief Complaint: Upper Respiratory Infection Stated Complaint: weak/diarrhea/ears/throat/achey Source: patient, RN notes reviewed and old records reviewed Mode of arrival: ambulatory Limitations: no limitations History of Present Illness HPI Narrative: 53 year old female who presents to [facility] care with complaints of occasional cough, sinus congestion and drainage, decreased appetite feeling weak for the past 8 days. Patient reports that she has had body aches, chills diarrhea ear pain, sore throat, vomiting for the past 4 days with last emesis noted yesterday. Patient reports that she has has intermittent fevers around 100F. Patient reports that she has been taking Ibuprofen. MD elicited complaint: cough, sore throat, rhinorrhea, nasal congestion, sinus pain and other ( body aches, ear pain, diarrhea, vomiting,) Onset (ago): day(s) (8) Pain scale (0-10): 5 Able to tolerate fluids by mouth: Yes Treatments prior to arrival: ibuprofen Related Data Allergies Allergy/AdvReac Type Severity Reaction Status Date / Time morphine AdvReac Unknown Vomiting Verified 02/01/24 14:00 Review of Systems Review of Systems: CONSTITUTIONAL: Reports malaise, chills, sweats, or fever. EYES: Denies visual changes, redness, or discharge. ENT: Reports rhinorrhea, congestion, sinus pain, otalgia and sore throat. CARDIOVASCULAR: Denies chest pain, palpitations, or edema. RESPIRATORY: Reports cough.? Denies dyspnea. GASTROINTESTINAL: Denies abdominal pain,positive for nausea, vomiting, diarrhea SKIN: Denies rash or itching. MUSCULOSKELETAL: Reports myalgia. NEUROLOGIC: Reports headache. All systems reviewed & are unremarkable except as noted in HPI and below PMFSH Past Medical History Medical History Allergies Anxiety Cervical disc disorder Depression History of frequent headaches Thyroid disease Surgical History Surgical History Delivery by section H/O: hysterectomy partial Family History Family History Grandparent Diabetes mellitus Acute myocardial infarction Father Family history of malignant neoplasm Mother Carcinoma of colon Social History Social History (Reviewed 08/25/24 @ 20:40 by JOSE Tinoco Social History: Smoking packs per day: 0.5 Smoking cigarettes per day: 10.0 Years smoked: 20 Smoking pack-years: 10.00 Smoking status: Current every day smoker Tobacco type: cigarettes Alcohol intake: current Drinks per week: 1 Alcohol use details: once a month Substance use: never Lack of Transportation: No Lack of Food: Never True Current Housing: I Have Housing Concerned About Future Housing: No Difficulty Paying Gas/Electric Bills: No Difficulty Paying for Meds: No Currently Unemployed: No Education: Associate Degree Difficulty w/ Childcare or Family Care: No Living arrangements: with family Occupation/Education: occupation Additional occupation/education comments: works from home Comments At time of signature, agree with nursing past medical, surgical, social and family history. There is no relevant family history pertinent to the presenting complaint Exam Narrative: GENERAL: Well-appearing, well-nourished, and in no acute distress. HEAD: Normocephalic EYES: PERRLA, conjunctivae clear ENT: Nares clear, turbinates edematous and erythematous, clear light yellow discharge. Mucous membranes moist. TM pearly [place] with dull light reflex bilaterally; no tragal tenderness. Oropharynx erythematous without lesions. Tonsils not enlarged and without exudate, no drooling, no hoarseness, no trismus, uvula midline.post nasal drainage NECK: Supple. No lymphadenopathy CHEST: Clear to auscultation, breath sounds equal. No wheezing, rhonchi, r
[2024-02-01 14:00] LABS: EDINFLUASCREEN Negative; EDINFLUBSCREEN Negative
[2024-02-01 14:03] LABS: EDSTREPNEGPOS1 Negative
== END 2024-02-01 14:16 | disposition home or self-care (01) ==
PROVIDERS: Emergency Provider Registered Nurse; PCP Family Medicine
DX: J01.90 Acute sinusitis, unspecified (principal); K52.9 Noninfective gastroenteritis and colitis, unspecified; Z20.822 Contact with and (suspected) exposure to COVID-19; F17.210 Nicotine dependence, cigarettes, uncomplicated
CPT/HCPCS: 87081; 87426; 87804; 87880; 99213; G0463

== ENCOUNTER 2024-04-30 08:49 | Emergency (ER) | payer OTHER, SELFPAY ==
[2024-04-30] VITALS (18 sets, daily range): BP systolic 96–150; BP diastolic 59–87; PULSE 43–73; RESP 12–20; TEMP 36.3; O2SAT 94–100
--- NOTE | ~2024-04-30 | XR_ITS ---
EXAMINATION: XR chest 2V DATE: 04/30/2024 09:42 INDICATION: Left arm and neck pain TECHNIQUE: frontal and lateral views of the chest were obtained. COMPARISON: Chest radiograph dated 05/29/2023 FINDINGS: Unchanged mild lingular atelectasis along side a small paracardial fat pad near the apex of the heart . No new airspace opacities, pulmonary edema, pleural effusion or pneumothorax. The cardiomediastinal silhouette is normal. Mild thoracic dextroscoliosis with moderate spondylosis. IMPRESSION: 1. Chronic mild lingular atelectasis/scarring. No acute cardiopulmonary disease. Reviewed, dictated and finalized at location B. GE ENTRY SPECIALIST IMPRESSION: 1. Chronic mild lingular atelectasis/scarring. No acute cardiopulmonary disease .
--- NOTE | 2024-04-30 08:50 | ECG_ITS ---
Test Date: 2024-04-30 08:56:19 Measurements Intervals [place] Rate: 60 P: 54 MN: 188 QRS: 9 QRSD: 84 T: 58 QT: 420 QTc: 422 Interpretive Statements SINUS RHYTHM LOW QRS VOLTAGE IN PRECORDIAL LEADS BORDERLINE ST ABNORMALITY- ANTEROLATERAL LEADS BASELINE ARTIFACT- I, II, III, AVR, AVL, AVF, V1-V6 BORDERLINE ECG No previous ECG available for comparison Electronically Signed On 04-30-2024 09:13:48 HYDRAMATIC MECHANIC by Zaid Guillen D.O.
[2024-04-30 09:13] LABS: Basophils Absolute Auto 0.1 K/mm3 (0.0-0.1); Basophils Percent Auto 0.6 % (0.2-1.2); Eosinophils Absolute Auto 0.2 K/mm3 (0-0.3); Hematocrit 40.5 % (37.0-47.0); Hemoglobin 13.6 g/dL (12.0-15.0); Immature Granulocyte Absolute 0.03 K/mm3 (0.00-0.031); Immature Granulocyte Percent A 0.4 % (0-0.5); Lymphocytes Absolute Auto 2.12 K/mm3 (0.9-3.2); Mean Corpuscular HGB Conc 33.6 g/dl (32-36); Mean Corpuscular Hemoglobin 31.7 pg (26-34); Mean Corpuscular Volume 94.4 fl (80-100); Mean Platelet Volume 10.3 fl (7.4-10.4); Monocytes Absolute Auto 0.9 K/mm3 (0.1-0.6); Monocytes Percent Auto 10.8 % (2.6-8.5); Neutrophils Absolute Auto 4.7 K/mm3 (1.3-6.7); Neutrophils Percent Auto 59.2 % (45.5-73.1); Platelet Count Result 268 k/mm3 (150-375); Red Blood Count 4.29 M/mm3 (4.2-5.4); Red Cell Distribution Width 13.1 % (11.5-14.5); White Blood Count 7.9 K/mm3 (4.5-10.0)
[2024-04-30 09:24] LABS: INR 0.9; Partial Thromboplastin Time 25.5 Seconds (22.3-36.8); Prothrombin Time 12.6 Seconds (11.1-14.7)
[2024-04-30 09:25] LABS: Alanine Aminotransferase 11 U/L (6-35); Albumin Level 4.2 g/dL (3.5-5.1); Alkaline Phosphatase 82 U/L (38-126); Anion Gap 5 mmol/L (4-12); Aspartate Amino Transferase 17 U/L (14-36); Bilirubin,Total 0.4 mg/dL (0.2-1.3); Blood Urea Nitrogen 11 mg/dL (7-17); Calcium 9.1 mg/dL (8.4-10.2); Carbon Dioxide 24 mmol/L (22-30); Chloride 109 mmol/L (98-107); Estimated CRCL calculation 90 ml/min; Estimated Glomerular Filt Rate > 60; Glucose 96 mg/dL (65-110); Lipase 50 U/L (23-300); Potassium 4.2 mmol/L (3.4-5.0); Sodium 138 mmol/L (137-145)
[2024-04-30 09:37] LABS: Troponin I < 0.012 ng/mL (0.000-0.034)
[2024-04-30] MEDS: diazePAM INJ (*CRX) 10 MG/2 ML SYRINGE 5 MG IV PUSH (09:55)
[2024-04-30 10:02] LABS: D Dimer < 0.27 ug/mL (<0.48)
[2024-04-30 10:28] LABS: Ethanol < 10 mg/dL (<10)
[2024-04-30 10:29] LABS: Amphetamine Screen Urine Negative (Negative); Barbiturate Screen Urine Negative (Negative); Benzodiazepines Screen Urine Negative (Negative); Cannabinoid Screen Urine Negative (Negative); Cocaine Screen Urine Negative (Negative); Methadone Screen Urine Negative (Negative); Opiate Screen Urine Negative (Negative); Phencyclidine Screen Urine Negative (Negative)
[2024-04-30 10:37] LABS: NT Pro B Type Natriuretic Pept 78 pg/mL (19.9-100)
[2024-04-30 11:00] LABS: Thyroid Stimulating Hormone Reflex 0.409 uIU/mL (0.465-4.68)
[2024-04-30 12:09] LABS: Free T4 Free Thyroxine Reflex 1.26 ng/dL (0.78-2.19)
--- NOTE | 2024-04-30 12:12 | ED_ITS ---
HPI - General Adult General Chief complaint: Chest Pain Stated complaint: chest pain Time Seen by Provider: 04/30/24 09:01 History of Present Illness HPI narrative: This is a 53-year-old female sent in by her primary care physician for chest pain. Patient came in listing a large amount of complaints. When I asked her to narrow it down to 1 complaint that was the main problem she started crying and said I just do not feel good. She said I'm afraid I am going to in my sleep. The patient also describes chest pain in the center of her chest in her neck and in her arm. She has also been having episodes of sweating as well as shortness of breath and increased anxiety. Patient has a hysterectomy and does not know when her last menstrual period was but there is some concern that she may be going through menopause. Additionally she is a daily drinker and drinks 3-4 vodka drinks per day. She has not gone a day without drinking many years. Last drink was last night patient. Related Data Allergies Allergy/AdvReac Type Severity Reaction Status Date / Time morphine AdvReac Unknown Vomiting Verified 04/30/24 07:26 [facility] Past Medical History Medical History Allergies Anxiety Cervical disc disorder Depression History of frequent headaches Thyroid disease Surgical History Surgical History Delivery by section H/O: hysterectomy partial Family History Family History Grandparent Diabetes mellitus Acute myocardial infarction Father Family history of malignant neoplasm Mother Carcinoma of colon Social History Social History Social History: Smoking packs per day: 0.5 Smoking cigarettes per day: 10.0 Years smoked: 20 Smoking pack-years: 10.00 Smoking status: Current every day smoker Tobacco type: cigarettes Alcohol intake: current Drinks per week: 1 Alcohol use details: once a month Substance use: never Lack of Transportation: No Lack of Food: Never True Current Housing: I Have Housing Concerned About Future Housing: No Difficulty Paying Gas/Electric Bills: No Difficulty Paying for Meds: No Currently Unemployed: No Education: Associate Degree Difficulty w/ Childcare or Family Care: No Living arrangements: with family Occupation/Education: occupation Additional occupation/education comments: works from home Exam Narrative: APPEARANCE: tearful, anxious, crying, sad Head: atraumatic. EYES: EOMI, NOSE: Atraumatic NECK: Trachea midline RESPIRATORY: No increased rate of breathing clear auscultation CARDIOVASCULAR: RRR, no peripheral edema ABDOMINAL: Non-distended soft nontender no guarding rebound MUSCULOSKELETAl: No obvious deformities NEURO: Alert. Moving 4/4 extremities SKIN:: Warm, dry. Normal color Course Vital Signs Vital signs: Vital Signs Temperature 97.4 F L 04/30/24 08:53 Pulse Rate 56 L 04/30/24 08:53 Respiratory Rate 14 04/30/24 08:53 Blood Pressure 150/80 H 04/30/24 08:53 Pulse Oximetry 100 04/30/24 08:53 Oxygen Delivery Room Air 04/30/24 08:53 Temperature 97.4 F L 04/30/24 08:53 Pulse Rate 56 L 04/30/24 08:53 Respiratory Rate 14 04/30/24 08:53 Blood Pressure 150/80 H 04/30/24 08:53 Pulse Oximetry 100 04/30/24 08:53 Oxygen Delivery Room Air 04/30/24 09:00 Medical Decision Making MDM Narrative Medical decision making narrative: -Course: this is a 53-year-old female presenting with chest pain. There seems to be a strong anxiety/emotional component to her presentation. Her workup was unremarkable with a negative EKG chest x-ray troponin and D-dimer. TSH was slightly low so she might be a touch above dose on her levothyroxine although I do not think that is the sole cause of her anxiety. Patient was given Valium on arrival and she said that that improved her condition immensely. Patient was informed of her results and is comfortable following up with her primary care physician and a therapist for further management. She has also been advised to follow-up with her market research associate. -DDX includes but is not limited to: ACS pneumonia PE pneumothorax anxiety perimenopause, alcoholism -Co-morbidities complicating care: anxiety, alcoholism, depression, hypothyroid -Independent interpretation of studies: labs imaging reviewed Independent EKG interpretation: Rhythm [sinus], Rate [60], [place] -[normal], [place] -[normal], QRS [narrow], QTC [normal], T waves -[negative for concerning inversions], ST Segments - [Negative for concerning elevations] Final interpretations: [Normal Sinus Rhythm] -Interventions: 5 mg Valium -Shared decision making / Disposition: discharge Vital Signs Vital Signs: Vital Signs Temperature 97.4 F L 04/30/24 08:53 Pulse Rate 56 L 04/30/24 08:53 Respiratory Rate 14 04/30/24 08:53 Blood Pressure 150/80 H 04/30/24 08:53 Pulse Oximetry 100 04/30/24 08:53 Oxygen Delivery Room Air 04/30/24 08:53 Temperature 97.4 F L 04/30/24 08:53 Pulse Rate 56 L 04/30/24 08:53 Respiratory Rate 14 04/30/24 08:53 Blood Pressure 150/80 H 04/30/24 08:53 Pulse Oximetry 100 04/30/24 08:53 Oxygen Delivery Room Air 04/30/24 09:00 Lab Data 04/30/24 09:05 04/30/24 09:05 Labs: Lab Results 04/30/24 04/30/24 04/30/24 Range/Units 09:04 09:05 09:52 WBC 7.9 (4.5-10.0) K/mm3 RBC 4.29 (4.2-5.4) M/mm3 Hgb 13.6 (12.0-15.0) g/dL Hct 40.5 (37.0-47.0) % MCV 94.4 (80-100) fl MCH 31.7 (26-34) pg MCHC 33.6 (32-36) g/dl RDW 13.1 (11.5-14.5) % Plt Count 268 (150-375) k/mm3 MPV 10.3 (7.4-10.4) fl Immature Gran % (Auto) 0.4 (0-0.5) % Neut % (Auto) 59.2 (45.5-73.1) % Lymph % (Auto) 27.0 (18.3-44.2) % Owen % (Auto) 10.8 H (2.6-8.5) % Eos % (Auto) 2.0 (0-4.4) % Baso % (Auto) 0.6 (0.2-1.2) % Lymph # (Auto) 2.12 (0.9-3.2) K/mm3 Owen # (Auto) 0.9 H (0.1-0.6) K/mm3 Eos # (Auto) 0.2 (0-0.3) K/mm3 Baso # (Auto) 0.1 (0.0-0.1) K/mm3 Abs Immat Gran (auto) 0.03 (0.00-0.031) K/mm3 Absolute Neuts (auto) 4.7 (1.3-6.7) K/mm3 Absolute Nucleated RBC 0.000 (0.0-0.012) K/mm3 Nucleated RBC % 0.0 (0.0-0.2) % PT 12.6 (11.1-14.7) Seconds INR 0.9 APTT 25.5 (22.3-36.8) Seconds D-Dimer < 0.27 (<0.48) ug/mL Sodium 138 (137-145) mmol/L Potassium 4.2 (3.4-5.0) mmol/L Chloride 109 H (98-107) mmol/L Carbon Dioxide 24 (22-30) mmol/L Anion Gap 5 (4-12) mmol/L BUN 11 (7-17) mg/dL Creatinine 0.70 (0.7-1.0) mg/dL Estim Creat Clear Calc 90 ml/min Estimated GFR > 60 (59 - ) Glucose 96 (65-110) mg/dL Calcium 9.1 (8.4-10.2) mg/dL Total Bilirubin 0.4 (0.2-1.3) mg/dL AST 17 (14-36) U/L ALT 11 (6-35) U/L Alkaline Phosphatase 82 (38-126) U/L Troponin I < 0.012 (0.000-0.034) ng/mL NT-Pro-B Natriuret Pep 78 (19.9-100) pg/mL Total Protein 7.0 (6.3-8.2) g/dL Albumin 4.2 (3.5-5.1) g/dL Lipase 50 (23-300) U/L TSH (Reflex) 0.409 L (0.465-4.68) uIU/mL Free T4 1.26 (0.78-2.19) ng/dL Total T3 Pending Urine Opiates Screen Negative (Negative) Urine Methadone Screen Negative (Negative) Ur Barbiturates Screen Negative (Negative) Ur Phencyclidine Scrn Negative (Negative) Ur Amphetamine Screen Negative (Negative) U Benzodiazepines Scrn Negative (Negative) Urine Cocaine Screen Negative (Negative) U Cannabinoids Screen Negative (Negative) Ethyl Alcohol < 10 (<10) mg/dL Discharge Plan Discharge Clinical Impression: Atypical chest pain, Anxiety, Alcohol use disorder Patient Disposition: Home, Self-Care Condition: Stable Instructions: Antibiotic Form, Chest Pain (ED) Additional Instructions: You were seen in the emergency department chest pain. thankfully your workup was negative. Please follow-up with your primary care physician further management. Please follow-up with market research associate for further management of your chest pain. Would recommend seeking therapy for your alcohol use disorder. Prescriptions: No Action sertraline 50 mg tablet 50 mg PO DAILY Qty: 30 3RF aripiprazole [Abilify] 5 mg tablet 5 mg PO DAILY Qty: 90 3RF Follow-up/Referrals: Crystal Granger APRN [Primary Care Provider] - 3 Days (ED F/u)
[2024-04-30 14:53] LABS: Total Triiodothyronine (T3) 1.44 NG/ML (0.97-1.69)
== END 2024-04-30 12:39 | disposition home or self-care (01) ==
PROVIDERS: Emergency Provider Emergency Medicine; PCP Nurse Practitioner Adult Health
DX: R07.89 Other chest pain (principal); F41.9 Anxiety disorder, unspecified; F10.20 Alcohol dependence, uncomplicated; Y90.0 Blood alcohol level of less than 20 mg/100 ml; E07.9 Disorder of thyroid, unspecified; F32.A Depression, unspecified; F17.210 Nicotine dependence, cigarettes, uncomplicated; Z90.710 Acquired absence of both cervix and uterus; Z90.711 Acquired absence of uterus with remaining cervical stump; Z79.899 Other long term (current) drug therapy; R94.31 Abnormal electrocardiogram [ECG] [EKG]
CPT/HCPCS: 36415; 71046; 80053; 80307; 82077; 83690; 83880; 84439; 84443; 84480; 84484; 85025; 85380; 85610; 85730; 93005; 96374; 99284; J3360

== ENCOUNTER 2025-01-06 15:48 | Outpatient (CLI) | payer OTHER, SELFPAY ==
--- NOTE | ~2025-01-06 | XR_ITS ---
EXAM: XR hand LT min 3V DATE: 01/06/2025 16:01 HISTORY: S69.92XA - Unspecified injury of left wrist, hand and fin... . COMPARISON: None available. FINDINGS: Lateral view limited by overlapping fingers Normal mineralization. No fracture or dislocati on. No lytic or blastic lesion. Joint spaces are maintained. No erosion or periosteal change. Soft ti ssues within normal limits. IMPRESSION: No acute osseous finding in the left hand. Reviewed, dictated and finalized at location K.
--- OUTSIDE RECORDS SUMMARY | 2025-01-06 15:52 | XMS_ITS | Continuity of Care Document ---
Author Organization [facility] Address [address] [place] [address] Phone Care Team Providers Care Bullet Swaging Machine Operator Name Role Phone Matthew Paniagua MD Unavailable Unavailable Advance Directives Directive Yes / No Effective Date File Name No Information Encounters Encounter Description Practice Location Reason(s) For Visit Diagnoses Date Provider Providers Copied on Encounter [facility], [address], [place], [place], [id number], [place] tel:[phone] SEC Sam SANTILLAN Professional No Information [address] Ar[address] Castro. [address] [facility] [address], [place], [place], [id number], [place]. tel:[phone] Family History Family Member Type Diagnosis Age At Onset No Information Payers Payer name Insurance type Covered republican ID Authoriza tion(s) No Information Social History [...]
--- OUTSIDE RECORDS SUMMARY | 2025-01-06 15:52 | XMS_ITS | Clinical Summary ---
Author Organization [facility] Address [address], [address] [address] Phone Care Team Providers Care Video Intern Name Role Phone Jim Bliss MD Primary Care Provider [phone] Emery Maxwell DO Unavailable [phone] Maryellen Price SENIOR CORPORATE STRATEGY MANAGER, [employer]LL [employer]AFF Unavailable Allergies Active Allergy Reactions Criticality Noted Date Comments Morphine Vomiting 05/23/2015 Medications Azelastine HCl 0.15 % SolutionIndicati ons:PNAR (perennial non-allergic rhinitis) 2 sprays in each nostril BID 1 Inhaler 11 5 Active butalbital-aceta minophen-caffein e (FIORICET, ESGIC) 50-325-40 MG Tablet Take 1 Tab by mouth every 6 hours as needed for Headaches. Active sertraline (ZOLOFT) 100 MG Tablet Take 100 mg by mouth daily. Active ARIPiprazole (ABILIFY) 15 MG Tablet Take 15 mg by mouth daily. Active Meloxicam 15 MG Tablet Take 1 Tab by mouth daily. 10 Tab 9 Active HYDROcodone-acet aminophen (NORCO) 5-325 MG Tablet Take 1-2 Tabs by mouth every 6 hours as needed for Moderate or more severe pain. 12 Tab 0 Active ARIPiprazole (ABILIFY) 5 MG Tablet Take 5 mg by mouth daily. 3 Active sertraline (ZOLOFT) 50 MG Tablet TAKE 1 AND 1/2 TABLETS BY MOUTH EVERY DAY 3 Active amphetamine-dext roamphetamine (ADDERALL XR) 20 MG CAPSULE SR 24 HR Take 20 mg by mouth daily. 3 Active pantoprazole (PROTONIX) 40 MG Tablet Delayed ResponseIndicati ons:Gastroesopha geal reflux disease, esophagitis presence not specified 1 tab po QD 30-60' AC largest meal 30 Tab 11 5 12/19/19 25 Discontinu ed(Med List Clean Up) citalopram (CELEXA) 40 MG TabletIndication s:Fatigue due to depression Take 1 Tab by mouth daily. 90 Tab 1 6 12/19/19 25 Discontinu ed(Med List Clean Up) Vortioxetine HBr (TRINTELLIX) 10 MG Tablet Take by mouth. 12/19/19 25 Discontinu ed(Med List Clean Up) azithromycin (ZITHROMAX Z-JODI) 250 MG Tablet 2 tab(s) daily for 1 day, then 1 tab(s) daily for days 2-5. 6 Tab 0 7 12/19/19 25 Discontinu ed(Med List Clean Up) ondansetron (ZOFRAN-ODT) 4 MG TABLET DISPERSIBLE DISSOLVE 1 TABLET ON THE TONGUE EVERY 8 HOURS NEEDED FOR NAUSEA OR VOMITING 3 12/19/19 25 Discontinu ed(Med List Clean Up) Active Problems Problem Noted Date Diagnosed Date Needs smoking cessation education 06/08/2015 Encounters Date Type Department Care Team Description 12/18/2024 12:12 AM CDT - 12/18/2024 2:40 AM CDT Emergency [facility] Emergency [address] [place] [address] Harris Mcintyre MD Contusion of hand Discharge Disposition: Discharged to home or Selfcare 12/18/2024 Travel 11/04/2024 8:36 AM CDT - 11/04/2024 11:59 PM CDT Hospital Encounter [facility] Ultrasound [address] [place] [address] Crystal Granger, SENIOR CORPORATE STRATEGY MANAGER Discharge Disposition: Discharged to home or Selfcare 11/04/2024 7:39 AM CDT - 11/04/2024 8:35 AM CDT Hospital Encounter [facility] Mammography [address] [place] [address] Crystal Granger, SENIOR CORPORATE STRATEGY MANAGER Discharge Disposition: Discharged to home or Selfcare 11/04/2024 Travel 10/28/2024 Transcribe Orders [facility] Central Scheduling [address] [place] [address] Crystal Granger, SENIOR CORPORATE STRATEGY MANAGER Mass of breast, unspecified laterality (Primary Dx) from Last 3 Months Immunizations Immunization Administration Dates Next Due TDAP Vaccine 10/14/2019 Family History Medical History Relation Name Comments Breast Cancer Maternal Aunt 1 Cancer Maternal Aunt 1 Breast Cancer Maternal Aunt 2 Camelia Breast Cancer Maternal Aunt 3 Mariam Breast Cancer Maternal Aunt 4 Keisha Breast Cancer Maternal Aunt 5 Margarita Breast Cancer Maternal Aunt 6 Breast Cancer Mother Cancer Mother colon Colon Cancer Mother Breast Cancer Paternal Aunt 1 Cancer Paternal Aunt 1 Breast Cancer Paternal Aunt 2 Cancer Paternal Aunt 2 Relation Name Status Comments Maternal Aunt 1 Maternal Aunt 2 Camelia Maternal Aunt 3 Mariam Maternal Aunt 4 Keisha Maternal Aunt 5 Margarita Maternal Aunt 6 Mother Paternal Aunt 1 Paternal Aunt 2 Social History Tobacco Use Types Packs/Day Years Used Date Smoking Tobacco: Every Day Cigarettes 1 20 Smokeless Tobacco: Never Alcohol Use Standard Drinks/Week Comments Yes 0 (1 standard drink = 0.6 oz pur e alcohol) occassionally on weekends Sexually Active Control Partners Comments Yes Male Comments No Sex and Gender Information Value Date Recorded Sex Assigned at Female 12/18/2024 12:39 AM CDT Legal Sex Female 9:02 PM CDT Gender Identity Female 12/18/2024 12:39 AM CDT Sexual Orientation Not on file Last Filed Vital Signs Vital Sign Reading Time Taken Comments Blood Pressure 111/75 12/18/2024 12:15 AM CDT Pulse 73 12/18/2024 12:15 AM CDT Temperature 36.8 C (98.2 F) 12/18/2024 12:15 AM CDT Respiratory Rate 18 12/18/2024 12:15 AM CDT Oxygen Saturation 100% 12/18/2024 12:15 AM CDT Inhaled Oxygen Concentration - - Weight 74.8 kg (165 lb) 12/18/2024 12:15 AM CDT Height 167.6 cm (5' 6) 12/18/2024 12:15 AM CDT Body Mass Index 26.63 12/18/2024 12:15 AM CDT Plan of Treatment Health Maintenance Due Date Last Done Comments Hepatitis C Virus (HCV) Screening 1972 Pneumococcal Immunization (50+ years) (1 of 2 - PCV) 12/21/1991 Cologuard 2017 Immunochemical Fecal Occult Blood 2017 Lung Cancer Screening 2022 Zoster Immunization (1 of 2) 2022 SARS-COV-2 Immunization ( season) 2024 01/20/2021, 12/19/2020 Influenza Immunization (#1) 2025 Mammogram 11/04/2025 11/04/2024, 02/09, 04/18/2018, Additional history exists Colonoscopy 10/27/2028 10/28/2023, 03/18/2018 Colorectal Cancer Screening 10/27/2028 Td Immunization Every 10 Years (Adults With 1 Tdap) 10/13/2029 10/14/2019, 03/29/2007 Respiratory Syncytial Virus (RSV) Immunization (Adult) (1 - 1-dose 75+ series) 12/21/2047 Meningococcal Immunization (ACWY) Aged Out 01/14/1995 No longer eligible based on patient's age to complete this topic Hepatitis B Immunization Completed 008, 06/14/2007, 05/10/2007 DTaP/Tdap/Td Immunization Discontinued 10/14/2019, Discussion re Starting/Frequency of Mammograms Discontinued 11/04/2024, 03/05/2024, 05/16/2018, Additional history exists Human Papillomavirus (HPV) Immunization Aged Out No longer eligible based on patient's age to complete this topic Rotavirus Immunization Aged Out No lo nger eligible based on patient's age to complete this topic Procedures Procedure Name Priority Date/Time Associated Diagnosis Comments XR HAND 2 VIEWS BILATERAL STAT 12/18/2024 2:06 AM CDT [facility] US BREAST LIMITED CHESTER Routine 11/04/2024 8:58 AM CDT Mass of breast, unspecified laterality [facility] DIAG BILATERAL DIGITAL W CAD W EMILY Routine 11/04/2024 8:44 AM CDT Mass of breast, unspecified laterality from Last 3 Months Results * XR HAND 2 VIEWS BILATERAL (12/18/2024 2:06 AM CDT) Anatomical Region Laterality Modality UPPER EXTREMITY, hand Bilateral Digital Ra diography 12/18/2024 2:14 AM CDT Impressions 12/18/2024 2:17 AM CDT IMPRESSION: No acute osseous abnormality. Narrative 12/18/2024 2:17 AM CDT EXAM DESCRIPTION: XR HAND 2 VIEWS BILATERAL REASON FOR STUDY: pt c/o bilateral hand pain after having her hand slammed in a sliding glass door @ 2200 this evening. pt unable to remove rings. TECHNIQUE: Two radiographic views of the left hand . Two radiographic views of the right hand . COMPARISON: None. FINDINGS: LEFT HAND BONES: There is no cortical discontinuity or trabecular irregularity to suggest fracture. The bones are in normal alignment. SOFT TISSUES: The soft tissues are unremarkable. RIGHT HAND BONES: There is no cortical discontinuity or trabecular irregularity to suggest fracture. The bones are in normal alignment. SOFT TISSUES: The soft tissues are unremarkable. THIS IS AN ELECTRONICALLY VERIFIED FINAL REPORT 12/18/2024 2:14 AM - Electronically signed by Alida Sebastian M.D. SN: Report ID: [id number] Reading Location: [id number] Procedure Note Alida Sebastian MD - 12/18/2024 EXAM DESCRIPTION: XR HAND 2 VIEWS BILATERAL REASON FOR STUDY: pt c/o bilateral hand pain after having her hand slammed in a sliding glass door @ 2200 this evening. pt unable to remove rings. TECHNIQUE: Two radiographic views of the left hand . Two radiographic views of the right hand . COMPARISON: None. FINDINGS: LEFT HAND BONES: There is no cortical discontinuity or trabecular irregularity to suggest fracture. The bones are in normal alignment. SOFT TISSUES: The soft tissues are unremarkable. RIGHT HAND BONES: There is no cortical discontinuity or trabecular irregularity to suggest fracture. The bones are in normal alignment. SOFT TISSUES: The soft tissues are unremarkable. THIS IS AN ELECTRONICALLY VERIFIED FINAL REPORT 12/18/2024 2:14 AM - Electronically signed by Alida Sebastian M.D. SN: SN Report ID: [id number] Reading Location: [id number] IMPRESSION: No acute osseous abnormality. Harris Mcintyre MD IMG DIAGNOSTIC ORDERABLES Final Result * [facility] US BREAST LIMITED CHESTER (11/04/2024 8:58 AM CDT) Anatomical Region Laterality Modality breast Bilateral Ultrasound 11/04/2024 7:40 AM CDT Narrative 11/04/2024 3:37 PM CDT - [facility] DIAG BILATERAL DIGITAL W CAD W EMILY - [facility] US BREAST LIMITED CHESTER BILATERAL DIGITAL DIAGNOSTIC MAMMOGRAM 3D/2D WITH CAD WITH MEDIOLATERAL OBLIQUE CRANIOCAUDAL AND TARGETED BILATERAL ULTRASOUND: 11/04/2024 The study was acquired using digital technology and interpreted from soft copy. Current study was also evaluated with ICAD version 7.2. 2D digital mammographic views, as well as 3D digital tomosynthesis were performed in the CC and MLO projections. CLINICAL: Diagnostic study. Patient reports a left lateral breast lump, and a right lateral breast lump. The lumps are financial services assistant to touch but, not painful. She states she lost about 15 pounds since last mammogram. No personal history of cancer. Mother with premenopausal breast cancer. Five maternal aunts, two paternal aunts, and ten maternal cousins had breast cancer. COMPARISONS: Comparison is made to exams dated: 03/05/2024, 03/05/2024, 05/16/2018, and 04/18/2018 [facility]. BREAST TISSUE:The breasts are extremely dense, which lowers the sensitivity of mammography. FINDINGS: BILATERAL DIAGNOSTIC MAMMOGRAM Markers are placed at the site of the palpable foci bilaterally. A large circumscribed cystic lesion is identified associated with the left marker, unchanged mammographically. Tomographic images reveal a circumscribed cystic appearing lesion at the site of the right marker. This is unchanged. No new significant masses or calcifications are seen in either breast on the mammogram. TARGETED BILATERAL BREAST ULTRASOUND Targeted right breast ultrasound was performed in the region of interest as indicated by the patient. This correlates as the 7 o'clock position 6 cm from the nipple. There is a simple cyst identified measuring 8 mm x 4 mm x 6 mm. There is posterior acoustical enhancement. This is unchanged and is benign. Targeted left breast ultrasound was performed in the region of interest as indicated by the patient. This correlates as the 3 o'clock position 5-6 cm from the nipple . there is a large circumscribed anechoic cyst identified measuring 3.6 x 2.8 x 3.4 cm. There is posterior acoustical enhancement. There is no evidence of color flow. This is unchanged from the previous study and is benign. IMPRESSION: OVERALL STUDY BIRADS: CATEGORY 2: BENIGN Bilateral palpable areas correlate with stable simple cysts and are benign. There is no mammographic or sonographic evidence of malignancy. Return to annual mammogram screening schedule is recommended. The results and recommendations were discussed with the patient. Electronically signed by: Cindi Locke M.D. ab/:11/04/2024 09:07:00 [employer] Supervisor(s): SAGE Perez, [facility]; RT Yasemin(R)(M), [facility] letter sent: Normal Exam Reading location: [facility] STUDY BIRADS: Category 2: Benign Procedure Note Cindi Locke MD - 11/04/2024 - [facility] DIAG BILATERAL DIGITAL W CAD W EMILY - [facility] US BREAST LIMITED CHESTER BILATERAL DIGITAL DIAGNOSTIC MAMMOGRAM 3D/2D WITH CAD WITH MEDIOLATERAL OBLIQUE CRANIOCAUDAL AND TARGETED BILATERAL ULTRASOUND: 11/04/2024 The study was acquired using digital technology and interpreted from soft copy. Current study was also evaluated with ICAD version 7.2. 2D digital mammographic views, as well as 3D digital tomosynthesis were performed in the CC and MLO projections. CLINICAL: Diagnostic study. Patient reports a left lateral breast lump, and a right lateral breast lump. The lumps are financial services assistant to touch but, not painful. She states she lost about 15 pounds since last mammogram. No personal history of cancer. Mother with premenopausal breast cancer. Five maternal aunts, two paternal aunts, and ten maternal cousins had breast cancer. COMPARISONS: Comparison is made to exams dated: 03/05/2024, 03/05/2024, 05/16/2018, and 04/18/2018 [facility]. BREAST TISSUE:The breasts are extremely dense, which lowers the sensitivity of mammography. FINDINGS: BILATERAL DIAGNOSTIC MAMMOGRAM Markers are placed at the site of the palpable foci bilaterally. A large circumscribed cystic lesion is identified associated with the left marker, unchanged mammographically. Tomographic images reveal a circumscribed cystic appearing lesion at the site of the right marker. This is unchanged. No new significant masses or calcifications are seen in either breast on the mammogram. TARGETED BILATERAL BREAST ULTRASOUND Targeted right breast ultrasound was performed in the region of interest as indicated by the patient. This correlates as the 7 o'clock position 6 cm from the nipple. There is a simple cyst identified measuring 8 mm x 4 mm x 6 mm. There is posterior acoustical enhancement. This is unchanged and is benign. Targeted left breast ultrasound was performed in the region of interest as indicated by the patient. This correlates as the 3 o'clock position 5-6 cm from the nipple . there is a large circumscribed anechoic cyst identified measuring 3.6 x 2.8 x 3.4 cm. There is posterior acoustical enhancement. There is no evidence of color flow. This is unchanged from the previous study and is benign. IMPRESSION: OVERALL STUDY BIRADS: CATEGORY 2: BENIGN Bilateral palpable areas correlate with stable simple cysts and are benign. There is no mammographic or sonographic evidence of malignancy. Return to annual mammogram screening schedule is recommended. The results and recommendations were discussed with the patient. Electronically signed by: Cindi Locke M.D. ab/:11/04/2024 09:07:00 [employer] Supervisor(s): Sera Ross RDMS OBGYN, [facility]; RT Yasemin(R)(M), [facility] letter sent: Normal Exam Reading location: [facility] OVERALL STUDY BIRADS: Category 2: Benign us Crystal Granger SENIOR CORPORATE STRATEGY MANAGER IMG MAMMO ORDERABLES Final Result * [facility] DIAG BILATERAL DIGITAL W CAD W EMILY (11/04/2024 8:44 AM CDT) Anatomical Region Laterality Modality breast Bilateral Mammography 11/04/2024 7:40 AM CDT Narrative 11/04/2024 3:37 PM CDT - [facility] DIAG BILATERAL DIGITAL W CAD W EMILY - [facility] US BREAST LIMITED [place]STER BILATERAL DIGITAL DIAGNOSTIC MAMMOGRAM 3D/2D WITH CAD WITH MEDIOLATERAL OBLIQUE CRANIOCAUDAL AND TARGETED BILATERAL ULTRASOUND: 11/04/2024 The study was acquired using digital technology and interpreted from soft copy. Current study was also evaluated with ICAD version 7.2. 2D digital mammographic views, as well as 3D digital tomosynthesis were performed in the CC and MLO projections. CLINICAL: Diagnostic study. Patient reports a left lateral breast lump, and a right lateral breast lump. The lumps are financial services assistant to touch but, not painful. She states she lost about 15 pounds since last mammogram. No personal history of cancer. Mother with premenopausal breast cancer. Five maternal aunts, two paternal aunts, and ten maternal cousins had breast cancer. COMPARISONS: Comparison is made to exams dated: 03/05/2024, 03/05/2024, 05/16/2018, and 04/18/2018 [facility]. BREAST TISSUE:The breasts are extremely dense, which lowers the sensitivity of mammography. FINDINGS: BILATERAL DIAGNOSTIC MAMMOGRAM Markers are placed at the site of the palpable foci bilaterally. A large circumscribed cystic lesion is identified associated with the left marker, unchanged mammographically. Tomographic images reveal a circumscribed cystic appearing lesion at the site of the right marker. This is unchanged. No new significant masses or calcifications are seen in either breast on the mammogram. TARGETED BILATERAL BREAST ULTRASOUND Targeted right breast ultrasound was performed in the region of interest as indicated by the patient. This correlates as the 7 o'clock position 6 cm from the nipple. There is a simple cyst identified measuring 8 mm x 4 mm x 6 mm. There is posterior acoustical enhancement. This is unchanged and is benign. Targeted left breast ultrasound was performed in the region of interest as indicated by the patient. This correlates as the 3 o'clock position 5-6 cm from the nipple . there is a large circumscribed anechoic cyst identified measuring 3.6 x 2.8 x 3.4 cm. There is posterior acoustical enhancement. There is no evidence of color flow. This is unchanged from the previous study and is benign. IMPRESSION: OVERALL STUDY BIRADS: CATEGORY 2: BENIGN Bilateral palpable areas correlate with stable simple cysts and are benign. There is no mammographic or sonographic evidence of malignancy. Return to annual mammogram screening schedule is recommended. The results and recommendations were discussed with the patient. Electronically signed by: Cindi Locke M.D. ab/:11/04/2024 09:07:00 [employer] Supervisor(s): SAGE Perez, [facility]; RT Yasemin(R)(M), [facility] letter sent: Normal Exam Reading location: [facility] STUDY BIRADS: Category 2: Benign Procedure Note Cindi Locke MD - 11/04/2024 - [facility] DIAG BILATERAL DIGITAL W CAD W EMILY - [facility] US BREAST LIMITED [place]STER BILATERAL DIGITAL DIAGNOSTIC MAMMOGRAM 3D/2D WITH CAD WITH MEDIOLATERAL OBLIQUE CRANIOCAUDAL AND TARGETED BILATERAL ULTRASOUND: 11/04/2024 The study was acquired using digital technology and interpreted from soft copy. Current study was also evaluated with ICAD version 7.2. 2D digital mammographic views, as well as 3D digital tomosynthesis were performed in the CC and MLO projections. CLINICAL: Diagnostic study. Patient reports a left lateral breast lump, and a right lateral breast lump. The lumps are financial services assistant to touch but, not painful. She states she lost about 15 pounds since last mammogram. No personal history of cancer. Mother with premenopausal breast cancer. Five maternal aunts, two paternal aunts, and ten maternal cousins had breast cancer. COMPARISONS: Comparison is made to exams dated: 03/05/2024, 03/05/2024, 05/16/2018, and 04/18/2018 [facility]. BREAST TISSUE:The breasts are extremely dense, which lowers the sensitivity of mammography. FINDINGS: BILATERAL DIAGNOSTIC MAMMOGRAM Markers are placed at the site of the palpable foci bilaterally. A large circumscribed cystic lesion is identified associated with the left marker, unchanged mammographically. Tomographic images reveal a circumscribed cystic appearing lesion at the site of the right marker. This is unchanged. No new significant masses or calcifications are seen in either breast on the mammogram. TARGETED BILATERAL BREAST ULTRASOUND Targeted right breast ultrasound was performed in the region of interest as indicated by the patient. This correlates as the 7 o'clock position 6 cm from the nipple. There is a simple cyst identified measuring 8 mm x 4 mm x 6 mm. There is posterior acoustical enhancement. This is unchanged and is benign. Targeted left breast ultrasound was performed in the region of interest as indicated by the patient. This correlates as the 3 o'clock position 5-6 cm from the nipple . there is a large circumscribed anechoic cyst identified measuring 3.6 x 2.8 x 3.4 cm. There is posterior acoustical enhancement. There is no evidence of color flow. This is unchanged from the previous study and is benign. IMPRESSION: OVERALL STUDY BIRADS: CATEGORY 2: BENIGN Bilateral palpable areas correlate with stable simple cysts and are benign. There is no mammographic or sonographic evidence of malignancy. Return to annual mammogram screening schedule is recommended. The results and recommendations were discussed with the patient. Electronically signed by: Cindi Locke M.D. ab/:11/04/2024 09:07:00 [employer] Supervisor(s): SAGE Perez, [facility]; RT Yasemin(R)(M), [facility] letter sent: Normal Exam Reading location: [facility] OVERALL STUDY BIRADS: Category 2: Benign Crystal L Vincent SENIOR CORPORATE STRATEGY MANAGER IMG MAMMO ORDERABLES Final Result from Last 3 Months Insurance [facility] GENER[facility] OAP Care Teams Video Intern Relationship Specialty Start Date End Date Jim Bliss MD [address] [place] [id number] PCP - General Family Medicine 10/28/23 Emery Maxwell DO [address] [place] [address] Family Medicine 11/13/22 Maryellen Price APRN, [employer] STAFF [address] [place] [address] Nurse Practitioner Advanced Practice Nurse 01/25/23
== END 2025-01-06 15:49 | disposition home or self-care (01) ==
PROVIDERS: PCP Nurse Practitioner Adult Health; Visit Provider Nurse Practitioner Adult Health
DX: S69.92XA Unspecified injury of left wrist, hand and finger(s), initial encounter (principal); X58.XXXA Exposure to other specified factors, initial encounter
CPT/HCPCS: 73130

== ENCOUNTER 2025-03-09 15:47 | Outpatient (CLI) | payer OTHER, SELFPAY ==
--- OUTSIDE RECORDS SUMMARY | 2005-07-27 03:30 | XMS_ITS | Continuity of Care Document ---
Author Organization 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 [address] [facility] [address], [place], [place], [id number], [place]. tel:[phone] Family History Family Member Type Diagnosis Age At Onset No Information Payers Payer name Insurance type Covered constitution party ID Authoriza tion(s) No Information Social History Type Description Quantity Date Captured Comments Sex Female Smoking Status No Information Chief Complaint And Reason For Visit No Information Reason For Referral Reason For Referral No Information History Of Present Illness Encounter Date Complaint History Of Prese nt Illness No Information Functional Status Date Functional Assessmen t No Information Instructions Date Instruction Additional Infor mation No Information Assessments Type Assessment Date No Information Patient Care Teams Name Effective Dates (start - stop) Status Members No Information
--- NOTE | ~2025-03-09 | MR_ITS ---
MR breast BI wo/w con 03/10/2025 07:24 CDT INDICATION: Family history of breast cancer TECHNIQUE: MRI of the breasts perform using standard protocol pre-and post IV contrast with the following sequences: Axial T2 STIR, axial T1, axial vibrant T1 with fat suppression precontrast and multiphasic postcontrast. 15 cc MultiHance administered intravenously. COMPARISON: Outside mammogram and ultrasound dated 11/04/2024 FINDINGS: Right breast: There are simple bilateral breast cysts. There are no abnormalities on the precontrast sequences. There is minimal background parenchymal enhancement. There are small intramammary lymph nodes of the right breast. No enhancing lesions following contrast administration. No areas of enhancement meeting threshold criteria on CAD analysis. No evidence of signal abnormalities in the axillary or internal mammary node distributions. LEFT BREAST: No signal abnormalities on precontrast sequences. There is minimal background parenchymal enhancement. No enhancing lesions following contrast administration. There is an intramammary lymph node of the left breast located centrally. There is a rim-enhancing cyst of the left breast at 6:00, middle third, measuring 3.2 x 2.1 x 1.6 cm with marginal rapid washout enhancement. There are small simple cyst of both breasts. No evidence of signal abnormalities in the axillary or internal mammary node distributions. IMPRESSION: 1: Rim-enhancing cyst in the left breast at 6:00, middle third measuring 3.2 x 2.1 x 1.6 cm with marginal rapid washout enhancement. While the cystic morphology may be benign, the rapid washout kinetics raise concern for possible malignant or atypical process. 2: Small bilateral intramammary lymph nodes, likely benign. 3: Further evaluation with targeted ultrasound and possible ultrasound-guided aspiration or core needle biopsy is recommended for definitive characterization. BI-RADS CATEGORY 4-SUSPICIOUS ABNORMALITY Reviewed, dictated and finalized at location B. IMPRESSION: 1: Rim-enhancing cyst in the left breast at 6:00, middle third measuring 3.2 x 2.1 x 1.6 cm with marginal rapid washout enhancement. While the cystic morpholo gy may be benign, the rapid washout kinetics raise concern for possible maligna nt or atypical process. 2: Small bilateral intramammary lymph nodes, likely benign. 3: Further evaluation with targeted ultrasound and possible ultrasound-guided aspiration or core needle biopsy is recommended for definitive characterization . BI-RADS CATEGORY 4-SUSPICIOUS ABNORMALITY
--- OUTSIDE RECORDS SUMMARY | 2025-03-09 15:51 | XMS_ITS | Patient Health Record ---
Author Organization [facility] [employer] [facility] Address [address] [place] [address] Support Name Relationship Address Phone JUAN [facility] Emergency Contact Unknown Magdalene vailable RISSA PACE Guarantor Unknown [phone] Reason For Referral No Information Medications Medication SIG (Take, Route, Frequency, Duration) Notes Start Date End Date Status Ondansetron 4 MG Tablet Disintegrating Oral 09/23/2023 Active ARIPiprazole 5 MG Tablet Oral 09/23/2023 Active Sertraline HCl 50 MG Tablet Oral 09/23/2023 Active Amphetamine-Dextroamphet ER 20 MG Capsule Extended Release 24 Hour Oral 09/23/2023 Active Social History Social History Additional Details Category Social Info Options Details Migrated Social History Migrated Social History Alcohol Intake: Occasional 09/23/2023,Tobacco Years: Current every day smoker 09/23/2023 Plan Of Treatment No Information Insurance Providers Payer Name Payer Address Payer Phone Subscriber Number Group Number Insured Name Patient Relationship to Insured Coverage Start Date Coverage End Date [facility] [id number] [place] [address] [id number] I RISSA PACE Self - patient is the insured Medical (General) History Surgical History Surgery Date(Month/Year) Cosmetic surgery 06/10/1996 Hysterectomy (13578) 06/10/2011
--- OUTSIDE RECORDS SUMMARY | 2025-03-09 15:51 | XMS_ITS | Clinical Summary ---
Author Organization [facility] Address [address], [address] [address] Phone Care Team Providers Care Household Personal Assistant Name Role Phone Jim Bliss MD Primary Care Provider [phone] Emery Maxwell DO Unavailable [phone] Maryellen Price MOTOR VEHICLE TECHNICIAN, CODING CONSULTANT Unavailable Allergies Active Allergy Reactions Criticality Noted Date Comments Morphine Vomiting 05/23/2015 Medications Azelastine HCl 0.15 % SolutionIndicat ions:PNAR (perennial non-allergic rhinitis) 2 sprays in each nostril BID 1 Inhaler 11 06/08/2015 Active butalbital-acet aminophen-caffe ine (FIORICET, ESGIC) 50-325-40 MG Tablet Take 1 Tab by mouth every 6 hours as needed for Headaches. Active sertraline (ZOLOFT) 100 MG Tablet Take 100 mg by mouth daily. Active ARIPiprazole (ABILIFY) 15 MG Tablet Take 15 mg by mouth daily. Active Meloxicam 15 MG Tablet Take 1 Tab by mouth daily. 10 Tab 01/13/2019 Active HYDROcodone-chrissy taminophen (NORCO) 5-325 MG Tablet Take 1-2 Tabs by mouth every 6 hours as needed for Moderate or more severe pain. 12 Tab 10/14/2019 Active ARIPiprazole (ABILIFY) 5 MG Tablet Take 5 mg by mouth daily. 01/14/2023 Active sertraline (ZOLOFT) 50 MG Tablet TAKE 1 AND 1/2 TABLETS BY MOUTH EVERY DAY 01/18/2023 Active amphetamine-dex troamphetamine (ADDERALL XR) 20 MG CAPSULE SR 24 HR Take 20 mg by mouth daily. 01/21/2023 Active Active Problems Problem Noted Date Diagnosed Date Needs smoking cessation education 06/08/2015 Encounters Date Type Department Care Team Description 12/18/2024 12:12 AM CDT - 12/18/2024 2:40 AM CDT Emergency [facility] Emergency [address] [place] [address] Harris Mcintyre MD Contusion of hand Discharge Disposition: Discharged to home or Selfcare 12/18/2024 Travel from Last 3 Months Immunizations Immunization Administration [...] 2022 Zoster Immunization (1 of 2) 2022 Influenza Immunization (#1) 2025 SARS-COV-2 Immunization (3 - season) 2025 01/20/2021, 12/19/2020 Mammogram 11/04/2025 11/04/2024, 02/09, 04/18/2018, Additional history [...] VIEWS BILATERAL STAT 12/18/2024 2:06 AM CDT KARYN DIAG BILATERAL DIGITAL W CAD W EMILY Routine 11/04/2024 8:44 AM CDT Mass of breast, unspecified laterality from Last 3 Months or Most Recently Relevant to Health Maintenance Results * XR HAND 2 VIEWS BILATERAL [...] by Alida Sebastian M.D. SN: Report ID: [id number] Reading Location: [id number] Procedure Note Alida Sebastian MD - 12/18/2024 [...] Alida Sebastian M.D. SN: SN Report ID: [id number] Reading Location: [id number] IMPRESSION: No acute osseous abnormality. Harris Mcintyre MD IMG DIAGNOSTIC ORDERABLES Final Result * KARYN DIAG BILATERAL [...] right lateral breast lump. The lumps are copper plate printer to touch but, not painful. She states she lost about 15 pounds since last mammogram. No personal history of cancer. Mother with premenopausal breast cancer. Five maternal aunts, two paternal aunts, and ten maternal cousins had breast cancer. COMPARISONS: Comparison is made to exams dated: 03/05/2024, 03/05/2024, 05/16/2018, and 04/18/2018 [facility]. BREAST TISSUE:The breasts are [...] signed by: Cindi Locke M.D. ab/:11/04/2024 09:07:00 Industrial Design Engineer(s): Sera Ross RDMS OBGYVlad, [facility]; RT Yasemin(Jesus Manuel)(M), [facility] letter sent: Normal Exam Reading location: [facility] OVERALL STUDY BIRADS: Category 2: Benign Procedure Note [...] right lateral breast lump. The lumps are copper plate printer to touch but, not painful. She states she lost about 15 pounds since last mammogram. No personal history of cancer. Mother with premenopausal breast cancer. Five maternal aunts, two paternal aunts, and ten maternal cousins had breast cancer. COMPARISONS: Comparison is made to exams dated: 03/05/2024, 03/05/2024, 05/16/2018, and 04/18/2018 [facility]. BREAST TISSUE:The breasts are extremely dense, [...] signed by: Cindi Locke M.D. ab/:11/04/2024 09:07:00 Industrial Design Engineer(s): Sera Ross RDMS OBSIN, [facility]; RT Yasemin(R)(M), [facility] letter sent: Normal Exam Reading location: [facility] STUDY BIRADS: Category 2: Benign us Crystalanil Granger MOTOR VEHICLE TECHNICIAN IMG MAMMO ORDERABLES Final Result from Last 3 Months or Most Recently Relevant to Health Maintenance Insurance [facility] O[facility] [facility] Care Teams Household Personal Assistant Relationship Specialty Start Date End Date Jim Bliss MD PCP - General Family Medicine 10/28/23 Emery Maxwell DO [address] [place] [address] Family Medicine 11/13/22 Maryellen Price APRN, CODING CONSULTANT [address] [place] [address] Nurse Practitioner Advanced Practice Nurse 01/25/23
== END 2025-03-09 15:48 | disposition home or self-care (01) ==
PROVIDERS: PCP Nurse Practitioner Adult Health; Visit Provider Surgery
DX: N60.02 Solitary cyst of left breast (principal); R59.0 Localized enlarged lymph nodes; Z91.89 Other specified personal risk factors, not elsewhere classified; Z80.3 Family history of malignant neoplasm of breast
CPT/HCPCS: 77049; A9577; C8908

== ENCOUNTER 2025-03-29 07:56 | Outpatient (CLI) | payer OTHER, SELFPAY ==
--- NOTE | ~2025-03-29 | MMUS_ITS ---
PROCEDURE: MM post biopsy diagnostic LT, US breast cyst asp LT, US breast biopsy LT w image CLINICAL HISTORY: 54-year-old female who presents for ultrasound-guided aspiration and ultrasound-guided core needle biopsy of a left breast mass seen on breast MRI completed on 03/09/2025 that reported a cyst with rim enhancement which correlated to an ultrasound found cyst at 3:00 location. COMPARISON: MRI breast 03/09/2025 and left breast ultrasound completed on 11/04/2024. Following informed consent including risks, benefits, and possible complications, the patient was brought to the ultrasound suite. A time-out procedure was performed. A preliminary ultrasound of the left breast was performed, redemonstrating a correlating dominant anechoic mass at 3:00 location, 3 cm FN. The patient was prepped and draped in the usual sterile fashion. 1% lidocaine was instilled into the subcutaneous tissues. 1% lidocaine without epinephrine was injected into the deep tissues just inferior to the lesion. Approximately 15cc lidocaine was administered. A small skin areli was made. Utilizing ultrasound guidance, a 16-gauge needle was advanced into the lesion in the 3:00 location. Aspiration was performed obtaining approximately 8 cc of cloudy fluid. Multiple core samples of the cyst wall was obtained with a 13-gauge vacuum assisted biopsy needle. A post biopsy metal marker was placed at the biopsy site. Postprocedural mammogram of the left breast in craniocaudal and mediolateral projections reveal the post biopsy metal marker in good position. The patient tolerated the procedure well and was without immediate postprocedural complications. IMPRESSION: Successful ultrasound guided aspiration and biopsy of cystic mass at 3:00 location in the left breast. A post biopsy metal marker was placed at the biopsy site, which is seen on postprocedural mammogram. The patient tolerated the procedure well without immediate postprocedure complications. The patient was given postprocedural instructions and sent home in stable condition. Pathology report pending Reviewed, dictated and finalized at location B. IMPRESSION: Successful ultrasound guided aspiration and biopsy of cystic mass a t 3:00 location in the left breast. A post biopsy metal marker was placed at th e biopsy site, which is seen on postprocedural mammogram. The patient tolerated the procedure well without immediate postprocedure compli cations. The patient was given postprocedural instructions and sent home in sta ble condition. Pathology report pending IMPRESSION: Successful ultrasound guided aspiration and biopsy of cystic mass a t 3:00 location in the left breast. A post biopsy metal marker was placed at th e biopsy site, which is seen on postprocedural mammogram. The patient tolerated the procedure well without immediate postprocedure compli cations. The patient was given postprocedural instructions and sent home in sta ble condition. Pathology report pending
--- NOTE | 2025-03-29 10:00 | S_PTH ---
PATIENT: Teena Vale LOC: [facility] U#:[id number] AGE/SX: 54/F ROOM: RE03/29/[address]: Aurelia Garcias MD : 1970 BED: DIS: 03/29/2025 SPEC #: [id number] RECD: 03/29/25 10:52 STATUS: TAYLOR RESaji #: [id number] VANDANA: 03/29/25 10:[address]: Aurelia Garcias DEPT: [facility] Surgical RECD BY: Brigid Love ENTERED: 03/29/25 10:54 SP TYPE: Surgical OTHR DR: Crystal Granger APRN Tissues: A - Breast Biopsy B - Cytology Fluid Procedures: Hematoxylin and Eosin Stain Cell Block Gross and Microscopic Level 4 Cytopathology Cytospin
== END 2025-03-29 07:57 | disposition home or self-care (01) ==
LOC: ANHFOHIMG 08:00
PROVIDERS: PCP Nurse Practitioner Adult Health; Visit Provider Surgery
DX: R92.8 Other abnormal and inconclusive findings on diagnostic imaging of breast (principal)
CPT/HCPCS: 19000; 19083; 77065; 88108; 88305; A4648